=== PATIENT | female | born 1950 | race Caucasian/White ===

== ENCOUNTER 2016-06-05 09:09 | Emergency (ER) | payer MEDICARE, OTHER ==
[~2016-06-05] VITALS: Ht 170.2 cm; Wt 95.3 kg
[~2016-06-05 09:09] MED LIST: AMLO1TAB78 PO; ASPI81TA2 PO; AZIT250T6 PO; GLIP10TA13 PO; LEVO25TA4 PO; MELO-156 PO; METF10002 PO; PARO20TA2 PO; PREG75CA PO; SITA100T PO; SULF1TAB24 PO
[2016-06-05 09:35] VITALS: BP 158/67
[2016-06-05] MEDS ORDERED: FENTANYL PF 100 MCG/2 ML VIAL. IV ONE (10:00)
[2016-06-05] MEDS ORDERED: KETOROLAC TROMETHAMINE 60 MG/2 ML SYRINGE. IM ONE (10:30)
[2016-06-05] MEDS ORDERED: ORPHENADRINE CITRATE 60 MG/2 ML VIAL. IM ONE (10:30)
--- NOTE | 2016-06-05 10:30 | RAD ---
Indication right-sided chest pain. Duration of symptoms 3 days. A single view of the chest was obtained and is compared to an examination 2 weeks earlier. Heart size is at the upper limits of normal but unchanged. The pulmonary vasculature is normal. There is no focal infiltrate in either lung. A significant change when compared to the previous exam is not seen. There is slight deviation of the trachea to the right suggesting enlargement of the left lobe of the thyroid. The appearance is similar to the previous exam. IMPRESSION: No acute or focal process is seen in the chest
[2016-06-05 10:33] LABS: BILIRUBIN,URINE NEGATIVE (NEG); GLUCOSE,URINE >=1000 mg/dL (NEG); NITRITE,URINE NEGATIVE (NEG); PH,URINE 5.5; PROTEIN,URINE NEGATIVE (NEG-TRACE)
[2016-06-05 10:49] LABS: BACTERIA,URINE FEW /HPF (0-FEW); RBC,URINE 0 /HPF (0-2); SQUAMOUS EPITHELIAL CELL,UR MOD /LPF; YEAST,URINE PRESENT /HPF
[2016-06-05] MEDS ORDERED: CYCL10TA2 PO (11:49)
--- NOTE | 2016-06-05 11:49 | PHYS DOC ---
Past Medical History Past Medical History: Anxiety, Bronchitis, CAD, Depression, Diabetes-Type II, Hypertension Past Surgical History: Hysterectomy Additional Past Surgical Histo: THYROID SURG 85 Alcohol Use: None Drug Use: None Adult General Chief Complaint Chief Complaint: BACK PAIN - NO INJURY HPI HPI 65-year-old female presents with mid to low back pain. She states 2 weeks ago she had a bout of bronchitis and cough quite a bit and she thinks the coughing spell injured her back. She states in the last 24 hours she twisted wrong and felt her back locked up on her. She is not any fever chills or sweats. She denies any shortness of breath or dyspnea on exertion. She's had no hemoptysis. She does not complain of abdominal pain. She states the pain currently is 8 out of 10 and much worse if she tries to twist. [] Review of Systems Review of Systems Constitutional: Denies fever or chills [] Eyes: Denies change in visual acuity, redness, or eye pain [] HENT: Denies nasal congestion or sore throat [] Respiratory: Denies cough or shortness of breath [] Cardiovascular: No additional information not addressed in HPI [] GI: Denies abdominal pain, nausea, vomiting, bloody stools or diarrhea [] : Denies dysuria or hematuria [] Musculoskeletal: Per history of present illness] Integument: Denies rash or skin lesions [] Neurologic: Denies headache, focal weakness or sensory changes [] Endocrine: Denies polyuria or polydipsia [] Current Medications Current Medications Current Medications Medications (Trade) Dose Ordered Sig/Sean Start Time Stop Time Status Last Admin Dose Admin Fentanyl Citrate (Fentanyl 2ml Vial) 50 mcg 1X ONCE 06/05/16 10:00 06/05/16 10:01 UNV Ketorolac Tromethamine (Toradol Im) 60 mg 1X ONCE 06/05/16 10:30 06/05/16 10:31 DC 06/05/16 10:38 60 MG Orphenadrine Citrate (Norflex) 60 mg 1X ONCE 06/05/16 10:30 06/05/16 10:31 DC 06/05/16 10:35 60 MG Allergies Allergies Allergies Coded Allergies Type Severity Reaction Last Updated Verified No Known Drug Allergies 08/28/15 No Physical Exam Physical Exam Constitutional: Well developed, well nourished, no acute distress, non-toxic appearance. [] HENT: Normocephalic, atraumatic, bilateral external ears normal, oropharynx moist, no oral exudates, nose normal. [] Eyes: PERRLA, EOMI, conjunctiva normal, no discharge. [] Neck: Normal range of motion, no tenderness, supple, no stridor. [] Cardiovascular:Heart rate regular rhythm, no murmur [] Lungs & Thorax: Bilateral breath sounds clear to auscultation [] Abdomen: Bowel sounds normal, soft, no tenderness, no masses, no pulsatile masses. [] Skin: Warm, dry, no erythema, no rash. [] Back: No tenderness, no CVA tenderness. [] Extremities: No tenderness, no cyanosis, no clubbing, ROM intact, no edema. [] Neurologic: Alert and oriented X 3, normal motor function, normal sensory function, no focal deficits noted. [] Psychologic: Affect normal, judgement normal, mood normal. [] Current Patient Data Vital Signs Vital Signs Date Time Temp Pulse Resp B/P Pulse Ox O2 Delivery O2 Flow Rate FiO2 06/05/16 09:35 97.8 60 20 158/67 96 Room Air 97.8 Lab Values Laboratory Tests Test 06/05/16 10:10 Urine Collection Type Unknown Urine Color Yellow Urine Clarity Clear Urine pH 5.5 Urine Specific [place] >=1.030 Urine Protein Negativemg/dL (NEG-TRACE) Urine Glucose (UA) >=1000mg/dL (NEG) Urine Ketones (Stick) Negativemg/dL (NEG) Urine Blood Negative (NEG) Urine Nitrite Negative (NEG) Urine Bilirubin Negative (NEG) Urine Urobilinogen Dipstick 1.0mg/dL (0.2 mg/dL) Urine Leukocyte Esterase Negative (NEG) Urine RBC 0/HPF (0-2) Urine WBC 1-4/HPF (0-4) Urine Squamous Epithelial Cells Mod/LPF Urine Bacteria Few/HPF (0-FEW) Urine Hyaline Casts Few/HPF Urine Mucus Slight/LPF Urine Yeast Present/HPF EKG EKG [] Radiology/Procedures Radiology/Procedures [] Impressions: PROCEDURE: CHEST PA & LATERAL Indication right-sided chest pain. Duration of symptoms 3 days. A single view of the chest was obtained and is compared to an examination 2 weeks earlier. Heart size is at the upper limits of normal but unchanged. The pulmonary vasculature is normal. There is no focal infiltrate in either lung. A significant change when compared to the previous exam is not seen. There is slight deviation of the trachea to the right suggesting enlargement of the left lobe of the thyroid. The appearance is similar to the previous exam. IMPRESSION: No acute or focal process is seen in the chest Course & Med Decision Making Course & Med Decision Making Pertinent Labs and Imaging studies reviewed. (See chart for details) [ED course: Evaluation reveals 65-year-old female with mid back pain. She was given an IM shot of an anti-inflammatory as well as a muscle relaxer with good relief of her symptoms in the department. I will provide her with some muscle relaxers to take at home. I feel like the patient is stable for discharge.] Dragon Disclaimer Dragon Disclaimer This electronic medical record was generated, in whole or in part, using a voice recognition dictation system. Departure Departure Impression: Primary Impression: Thoracolumbar back pain Disposition: HOME, SELF-CARE Condition: IMPROVED Referrals: ASHLEY GIRON MD (PCP) Patient Instructions: Back Pain, Adult Additional Instructions: Thank you for allowing us to participate in your care today. Followup with your primary care physician in 3 days if your symptoms do not improve. Return to the emergency department you have any new or concerning findings. This should be evaluated by the primary care physician and any necessary consulting services for continued management within a few days after discharge. Return to emergency room if you have any new or concerning symptoms including but not limited to fever, chills, nausea, vomiting, intractable pain, any new rashes, chest pain, shortness of air, uncontrolled bleeding, difficulty breathing, and/or vision loss. You may have been prescribed medication that can change in your level of thinking and ability to operate machinery. These medications include hydrocodone and Ativan. Also, Benadryl has been known to do this as well. Be sure to check with your pharmacist and ask if the medications you've prescribed can affect your level of consciousness. I recommend not operating heavy machinery or driving while on medication such as these. Scripts Cyclobenzaprine Hcl 10 Mg Tablet1 Tab PO TID PRN MUSCLE PAIN #30 TAB Prov:CHRISTINE MATIAS DO 06/05/16 CHRISTINE MATIAS DO Jun 05, 2016 11:49
== END 2016-06-05 12:00 | disposition home or self-care (01) ==
LOC: ER 09:09
DX: M54.5 Low back pain (principal); M54.6 Pain in thoracic spine; R05 Cough; E11.9 Type 2 diabetes mellitus without complications; F32.9 Major depressive disorder, single episode, unspecified; I10 Essential (primary) hypertension; I25.10 Atherosclerotic heart disease of native coronary artery without angina pectoris; F41.9 Anxiety disorder, unspecified; Z90.710 Acquired absence of both cervix and uterus
CPT/HCPCS: 71020; 81001; 96372; 99285; J1885; J2360

== ENCOUNTER 2016-07-01 23:04 | Emergency (ER) | payer MEDICARE, OTHER ==
[~2016-07-01] VITALS: Ht 170.2 cm; Wt 95.3 kg
[~2016-07-01 23:04] MED LIST changes: +CYCL10TA2 PO; -PARO20TA2 PO; +PARO20TA3 PO
[2016-07-01 23:31] VITALS: BP 152/68
[2016-07-02] MEDS ORDERED: ACET1TAB33 PO (01:27)
--- NOTE | 2016-07-02 01:27 | PHYS DOC ---
Past Medical History Past Medical History: Anxiety, Bronchitis, CAD, Depression, Diabetes-Type II, Hypertension Past Surgical History: Hysterectomy Additional Past Surgical Histo: THYROID SURG 85 Alcohol Use: None Drug Use: None Adult General Chief Complaint Chief Complaint: MUSCLE SPASM/[facility] HPI Patient is a 65 year old female presents emergency room with ongoing, atraumatic right sided mid back pain that radiates around to the front when she lifts, twists and moves. Patient has similar episode back in May of this year. She received an injection of Toradol which she said helped greatly with the pain. She was prescribed Flexeril which she took intermittently when she was expressing spasms. She states that this also helps. Patient stated that she will schedule an appointment with her primary care doctor, Dr. Giron, to be seen within the next 1-2 weeks. Patient denies shortness of breath or cough. She denies nausea, vomiting or abdominal pain. Patient denies chest pain, palpitations, exertional dyspnea, orthopnea or PND. Review of Systems Review of Systems Constitutional: Denies fever or chills [] Eyes: Denies change in visual acuity, redness, or eye pain [] HENT: Denies nasal congestion or sore throat [] Respiratory: Denies cough or shortness of breath [] Cardiovascular: No additional information not addressed in HPI [] GI: Denies abdominal pain, nausea, vomiting, bloody stools or diarrhea [] : Denies dysuria or hematuria [] Musculoskeletal: Denies back pain or joint pain [] Integument: Denies rash or skin lesions [] Neurologic: Denies headache, focal weakness or sensory changes [] Endocrine: Denies polyuria or polydipsia [] Current Medications Current Medications Current Medications Medications (Trade) Dose Ordered Sig/[facility] Start Time Stop Time Status Last Admin Dose Admin Ketorolac Tromethamine (Toradol Im) 60 mg 1X ONCE 07/02/16 01:30 07/02/16 01:31 DC 07/02/16 01:25 60 MG Allergies Allergies Allergies Coded Allergies Type Severity Reaction Last Updated Verified No Known Drug Allergies 08/28/15 No Physical Exam Physical Exam Constitutional: Well developed, well nourished, no acute distress, non-toxic appearance. [] HENT: Normocephalic, atraumatic, bilateral external ears normal, oropharynx moist, no oral exudates, nose normal. [] Eyes: PERRLA, EOMI, conjunctiva normal, no discharge. [] Neck: Normal range of motion, no tenderness, supple, no stridor. [] Cardiovascular:Heart rate regular rhythm, no murmur [] Lungs & Thorax: Bilateral breath sounds clear to auscultation. Abdomen: Bowel sounds normal, soft, no tenderness, no masses, no pulsatile masses. Skin: Warm, dry, no erythema, no rash. [] Back: Patient's back is normal in appearance that any overlying skin lesions. There is tenderness to palpation to the right lateral soft tissues along the latissimus dorsi moving around forward. There is no palpable defect, deformity or spasm. There is no CVA tenderness. Extremities: No tenderness, no cyanosis, no clubbing, ROM intact, no edema. [] Neurologic: Alert and oriented X 3, normal motor function, normal sensory function, no focal deficits noted. [] Psychologic: Affect normal, judgement normal, mood normal. [] Current Patient Data Vital Signs Vital Signs Date Time Temp Pulse Resp B/P Pulse Ox O2 Delivery O2 Flow Rate FiO2 07/01/16 23:31 97.7 71 16 152/68 97 Room Air 97.7 EKG EKG [] Radiology/Procedures Radiology/Procedures [] Course & Med Decision Making Course & Med Decision Making Pertinent Labs and Imaging studies reviewed. (See chart for details) [] Dragon Disclaimer Dragon Disclaimer This electronic medical record was generated, in whole or in part, using a voice recognition dictation system. Departure Departure Impression: Primary Impression: Thoracolumbar back pain Disposition: HOME, SELF-CARE Condition: GOOD Referrals: ASHLEY GIRON MD (PCP) Patient Instructions: Back Pain, Adult, [id number] Additional Instructions: 1. Take the medication as prescribed. 2. You can continue to take the cyclobenzaprine (muscle relaxer) that you received in May when you were here. 3. Be sure to follow up with Dr. Giron next 1-2 weeks. Scripts Acetaminophen With Codeine (Acetaminophen-Cod #3 Tablet)1 Each Tablet1 Tab PO PRN Q6HRS PRN PAIN #10 TAB Prov:KONRAD WESTFALL 07/02/16 KONRAD WESTFALL Jul 02, 2016 01:27
[2016-07-02] MEDS ORDERED: KETOROLAC TROMETHAMINE 60 MG/2 ML SYRINGE. IM ONE (01:30)
== END 2016-07-02 01:32 | disposition home or self-care (01) ==
LOC: ER 23:04
DX: M54.6 Pain in thoracic spine (principal); M54.5 Low back pain; F41.9 Anxiety disorder, unspecified; I25.10 Atherosclerotic heart disease of native coronary artery without angina pectoris; F32.9 Major depressive disorder, single episode, unspecified; E11.9 Type 2 diabetes mellitus without complications; I10 Essential (primary) hypertension; Z90.710 Acquired absence of both cervix and uterus
CPT/HCPCS: 96372; 99283; J1885

== ENCOUNTER 2016-12-11 06:34 | Emergency (ER) | payer OTHER ==
[~2016-12-11] VITALS: Ht 170.2 cm; Wt 95.3 kg
[~2016-12-11 06:34] MED LIST changes: +ACET1TAB33 PO; -AMLO1TAB78 PO; +AMLO1TAB97 PO; +ASPI-630 PO; -ASPI81TA2 PO; -MELO-156 PO; +MELO7.5T29 PO; +METF-620 PO; -METF10002 PO
[2016-12-11 07:24] LABS: BASO # 0.2 x10^3/uL (0.0-0.2); BASO % 1 % (0-3); EOS % 0 % (0-3); HEMATOCRIT 37.1 % (36.0-47.0); HEMOGLOBIN 12.2 g/dL (12.0-15.5); LYMPH # 2.9 x10^3/uL (1.0-4.8); LYMPH % 15 % (24-48); MEAN CORPUSCULAR HEMOGLOBIN 30 pg (25-35); MEAN CORPUSCULAR HGB CONC 33 g/dL (31-37); MEAN CORPUSCULAR VOLUME 90 fL (79-100); MONO % 6 % (0-9); NEUT % 77 % (31-73); PLATELET COUNT 279 x10^3/uL (140-400); RED BLOOD COUNT 4.12 x10^6/uL (3.50-5.40); WHITE BLOOD COUNT 19.3 x10^3/uL (4.0-11.0)
[2016-12-11 07:26] LABS: BILIRUBIN,URINE NEGATIVE (NEG); GLUCOSE,URINE >=1000 mg/dL (NEG); NITRITE,URINE NEGATIVE (NEG); PH,URINE 5.5; PROTEIN,URINE NEGATIVE (NEG-TRACE); UROBILINOGEN,URINE 0.2 mg/dL (0.2 mg/dL)
[2016-12-11 07:38] LABS: CREATININE 0.8 mg/dL (0.6-1.0); GFR 71.5
[2016-12-11 07:44] LABS: ALBUMIN 3.1 g/dL (3.4-5.0); ALBUMIN/GLOBULIN RATIO 0.6 (1.0-1.7); POTASSIUM 4.4 mmol/L (3.5-5.1); TOTAL BILIRUBIN 0.5 mg/dL (0.2-1.0)
[2016-12-11 07:45] LABS: BACTERIA,URINE 0 /HPF (0-FEW); RBC,URINE 0 /HPF (0-2); SQUAMOUS EPITHELIAL CELL,UR MOD /LPF; WBC,URINE >40 /HPF (0-4)
--- NOTE | 2016-12-11 07:58 | PHYS DOC ---
Past Medical History Past Medical History: Anxiety, Bronchitis, CAD, Depression, Diabetes-Type II, Hypertension Past Surgical History: Hysterectomy Additional Past Surgical Histo: THYROID SURG 85 Alcohol Use: None Drug Use: None Adult General Chief Complaint Chief Complaint: ABDOMINAL PAIN HPI HPI Patient is a 66 year old female who presents with lower abdominal pain to the right, burning and irritation with urination for one week. She states that she has also had constipation and some clear vaginal discharge.She denies being sexually active. She states that she also intermittently has had chills. She denies cough, chest pain or other illnesses. Review of Systems Review of Systems Constitutional: See history of present illness Eyes: Denies change in visual acuity, redness, or eye pain [] HENT: Denies nasal congestion or sore throat [] Respiratory: Denies cough or shortness of breath [] Cardiovascular: No additional information not addressed in HPI [] GI: See history of present illness : History of present illness Musculoskeletal: The patient has chronic lower back pain Integument: Denies rash or skin lesions [] Neurologic: Denies headache, focal weakness or sensory changes [] Endocrine: Denies polyuria or polydipsia [] Current Medications Current Medications Current Medications Medications (Trade) Dose Ordered Sig/Sean Start Time Stop Time Status Last Admin Dose Admin Azithromycin (Zithromax) 1,000 mg 1X ONCE 12/11/16 12:15 12/11/16 12:16 DC 12/11/16 12:33 1,000 MG Ceftriaxone Sodium (Rocephin Im) 1 gm 1X ONCE 12/11/16 12:15 12/11/16 12:16 DC 12/11/16 12:33 1 GM Iohexol (Omnipaque 300 Mg/ml) 75 ml 1X ONCE 12/11/16 08:15 12/11/16 08:16 DC 12/11/16 08:45 75 ML Allergies Allergies Allergies Coded Allergies Type Severity Reaction Last Updated Verified No Known Drug Allergies 08/28/15 No Physical Exam Physical Exam Constitutional: Well developed, well nourished, no acute distress, non-toxic appearance. [] Cardiovascular:Heart rate regular rhythm, no murmur [] Lungs & Thorax: Bilateral breath sounds clear to auscultation [] Abdomen: Bowel sounds normal, soft, mild tenderness with deep palpation to right lower abdomen, no guarding, no masses, no pulsatile masses. [] Skin: Warm, dry, no erythema, no rash. [] Back: No tenderness, no CVA tenderness. [] Neurologic: Alert and oriented X 3, normal motor function, normal sensory function, no focal deficits noted. [] Psychologic: Affect normal, judgement normal, mood normal. [] Current Patient Data Vital Signs Vital Signs Date Time Temp Pulse Resp B/P (MAP) Pulse Ox O2 Delivery O2 Flow Rate FiO2 12/11/16 09:25 68 16 163/74 (103) 98 Room Air 12/11/16 06:45 98.0 98.0 Lab Values Laboratory Tests Test 12/11/16 06:55 White Blood Count 19.3 x10^3/uL (4.0-11.0) H Red Blood Count 4.12 x10^6/uL (3.50-5.40) Hemoglobin 12.2 g/dL (12.0-15.5) Hematocrit 37.1 % (36.0-47.0) Mean Corpuscular Volume 90 fL (79-100) Mean Corpuscular Hemoglobin 30 pg (25-35) Mean Corpuscular Hemoglobin Concent 33 g/dL (31-37) Red Cell Distribution Width 14.0 % (11.5-14.5) Platelet Count 279 x10^3/uL (140-400) Neutrophils (%) (Auto) 77 % (31-73) H Lymphocytes (%) (Auto) 15 % (24-48) L Monocytes (%) (Auto) 6 % (0-9) Eosinophils (%) (Auto) 0 % (0-3) Basophils (%) (Auto) 1 % (0-3) Neutrophils # (Auto) 14.9 x10^3uL (1.8-7.7) H Lymphocytes # (Auto) 2.9 x10^3/uL (1.0-4.8) Monocytes # (Auto) 1.2 x10^3/uL (0.0-1.1) H Eosinophils # (Auto) 0.0 x10^3/uL (0.0-0.7) Basophils # (Auto) 0.2 x10^3/uL (0.0-0.2) Segmented Neutrophils % 78 % (35-66) H Lymphocytes % 16 % (24-48) L Monocytes % 6 % (0-10) Platelet Estimate Adequate (ADEQUATE) Urine Collection Type Unknown Urine Color Yellow Urine Clarity Clear Urine pH 5.5 Urine Specific [place] >=1.030 Urine Protein Negative mg/dL (NEG-TRACE) Urine Glucose (UA) >=1000 mg/dL (NEG) Urine Ketones (Stick) Negative mg/dL (NEG) Urine Blood Negative (NEG) Urine Nitrite Negative (NEG) Urine Bilirubin Negative (NEG) Urine Urobilinogen Dipstick 0.2 mg/dL (0.2 mg/dL) Urine Leukocyte Esterase Moderate (NEG) Urine RBC 0 /HPF (0-2) Urine WBC >40 /HPF (0-4) Urine Squamous Epithelial Cells Mod /LPF Urine Bacteria 0 /HPF (0-FEW) Sodium Level 136 mmol/L (136-145) Potassium Level 4.4 mmol/L (3.5-5.1) Chloride Level 100 mmol/L (98-107) Carbon Dioxide Level 29 mmol/L (21-32) Anion Gap 7 (6-14) Blood Urea Nitrogen 12 mg/dL (7-20) Creatinine 0.8 mg/dL (0.6-1.0) Estimated GFR (Cockcroft-Gault) 71.5 BUN/Creatinine Ratio 15 (6-20) Glucose Level 314 mg/dL (70-99) H Calcium Level 9.0 mg/dL (8.5-10.1) Total Bilirubin 0.5 mg/dL (0.2-1.0) Aspartate Amino Transferase (AST) 18 U/L (15-37) Alanine Aminotransferase (ALT) 18 U/L (14-59) Alkaline Phosphatase 130 U/L (46-116) H Total Protein 8.0 g/dL (6.4-8.2) Albumin 3.1 g/dL (3.4-5.0) L Albumin/Globulin Ratio 0.6 (1.0-1.7) L Laboratory Tests 12/11/16 06:55 Laboratory Tests 12/11/16 06:55 Microbiology 12/11/16 Wet Prep - Final, Complete EKG EKG [] Radiology/Procedures Radiology/Procedures [] PATIENT: ALICJA العراقي ACCOUNT: [id number] : 1950 LOCATION: ER AGE: 66 SEX: F EXAM STATUS: REG ER ORD. PHYSICIAN: RJ MALDONADO APRN REASON: RLQ abdominal pain x 1 week. PROCEDURE: CT ABD PELV W/ IV CONTRST ONLY CT abdomen and pelvis with contrast 12/11/2016 Clinical indication: Right lower quadrant abdominal pain for one week. Chills. Comparison: None. Technique: Multiple CT images of the abdomen and pelvis were obtained following uneventful intravenous administration of 75 mL Omnipaque 300. Coronal and sagittal reformations were obtained. PQRS Compliance Statement: One or more of the following individualized dose reduction techniques were utilized for this examination: 1. Automated exposure control 2. Adjustment of the mA and/or kV according to patient size 3. Use of iterative reconstruction technique Findings: Abdomen and pelvis: Heart size is normal without significant pericardial effusion. The visualized lung bases are clear. Liver, gallbladder, spleen, adrenal glands, pancreas, and kidneys are within normal limits. No intra or extrahepatic biliary ductal dilatation. Abdominal aorta is normal in caliber with mild aortoiliac calcified atheromatous disease. No retroperitoneal or mesenteric lymphadenopathy. Small and large bowel loops are normal in caliber without obstruction. Appendix is normal in appearance. No abdominal or pelvic lymphadenopathy. No abdominal pelvic free fluid. Mildly distended and unopacified urinary bladder within normal limits. Prior hysterectomy with the vaginal cuff within normal limits. There is a tiny fat-containing umbilical hernia. There is multilevel lumbar disc degeneration there is spondylolysis on the left at L4 with no significant listhesis. There is stable mild anterior-superior compression deformity at T9 with no significant bony retropulsion. Impression: 1. No acute abdominal pelvic inflammatory process, bowel obstruction or ascites. No appendicitis. 2. Old mild T9 superior endplate compression deformity. DICTATED and SIGNED BY: ISAI BLACKWOOD MD DATE: 12/11/16 0919 CC: RJ MALDONADO APRN; ASHLEY GIRON MD; FAY PACHECO DO ~ Impressions: Pelvic examination shows thick green discharge which was sent to the lab for evaluation. No pain was noted on internal exam. No gross deformity or lesions noted. Course & Med Decision Making Course & Med Decision Making Pertinent Labs and Imaging studies reviewed. (See chart for details) []1. Bacterial Vaginosis 2. Trichomoniasis 3 UTI You were given Rocephin and Zithromax in the ED and have a prescription for Flagyl. Please follow up with your PCP in 3 days for a recheck or return to the ED if worsening. Dragon Disclaimer Dragon Disclaimer This electronic medical record was generated, in whole or in part, using a voice recognition dictation system. Departure Departure Referrals: ASHLEY GIRON MD (PCP) Scripts Metronidazole (FLAGYL) 500 Mg Tablet 1 TAB PO BID, #14 TAB Prov: RJ MALDONADO APRN 12/11/16 RJ MALDONADO APRN Dec 11, 2016 07:58
[2016-12-11] MEDS ORDERED: IOHEXOL 300 MG/ML 75 ML VIAL IV ONE (08:15)
[2016-12-11 09:11] LABS: PLT ESTIMATE ADEQUATE (ADEQUATE)
--- NOTE | 2016-12-11 09:29 | RAD ---
CT abdomen and pelvis with contrast 12/11/2016 Clinical indication: Right lower quadrant abdominal pain for one week. Chills. Comparison: None. Technique: Multiple CT images of the abdomen and pelvis were obtained following uneventful intravenous administration of 75 mL Omnipaque 300. Coronal and sagittal reformations were obtained. PQRS Compliance Statement: One or more of the following individualized dose reduction techniques were utilized for this examination: 1. Automated exposure control 2. Adjustment of the mA and/or kV according to patient size 3. Use of iterative reconstruction technique Findings: Abdomen and pelvis: Heart size is normal without significant pericardial effusion. The visualized lung bases are clear. Liver, gallbladder, spleen, adrenal glands, pancreas, and kidneys are within normal limits. No intra or extrahepatic biliary ductal dilatation. Abdominal aorta is normal in caliber with mild aortoiliac calcified atheromatous disease. No retroperitoneal or mesenteric lymphadenopathy. Small and large bowel loops are normal in caliber without obstruction. Appendix is normal in appearance. No abdominal or pelvic lymphadenopathy. No abdominal pelvic free fluid. Mildly distended and unopacified urinary bladder within normal limits. Prior hysterectomy with the vaginal cuff within normal limits. There is a tiny fat-containing umbilical hernia. There is multilevel lumbar disc degeneration there is spondylolysis on the left at L4 with no significant listhesis. There is stable mild anterior-superior compression deformity at T9 with no significant bony retropulsion. Impression: 1. No acute abdominal pelvic inflammatory process, bowel obstruction or ascites. No appendicitis. 2. Old mild T9 superior endplate compression deformity.
[2016-12-11] MEDS ORDERED: AZITHROMYCIN 250 MG TABLET. PO ONE (12:15)
[2016-12-11] MEDS ORDERED: cefTRIAXone IM 1 GM VIAL IM ONE (12:15)
[2016-12-11] MEDS ORDERED: METR500T PO (12:16)
[2016-12-11 12:37] VITALS: BP 163/73
== END 2016-12-11 12:48 | disposition home or self-care (01) ==
LOC: ER 06:34
DX: N76.0 Acute vaginitis (principal); B96.89 Other specified bacterial agents as the cause of diseases classified elsewhere; A59.9 Trichomoniasis, unspecified; N39.0 Urinary tract infection, site not specified; K59.00 Constipation, unspecified; F41.9 Anxiety disorder, unspecified; I25.10 Atherosclerotic heart disease of native coronary artery without angina pectoris; F32.9 Major depressive disorder, single episode, unspecified; E11.9 Type 2 diabetes mellitus without complications; I10 Essential (primary) hypertension; Z90.710 Acquired absence of both cervix and uterus
CPT/HCPCS: 36415; 74177; 80053; 81001; 85007; 85025; 87086; 87491; 87591; 96372; 99285; J0696; Q0111; Q0144; Q9967

== ENCOUNTER 2017-01-29 08:31 | Emergency (ER) | payer OTHER ==
[~2017-01-29] VITALS: Ht 170.2 cm; Wt 95.3 kg
[~2017-01-29 08:31] MED LIST changes: +METR500T PO
[2017-01-29 08:40] VITALS: BP 199/86
--- NOTE | 2017-01-29 08:54 | PHYS DOC ---
Past Medical History Past Medical History: Anxiety, Bronchitis, CAD, Depression, Diabetes-Type II, Hypertension Past Surgical History: Hysterectomy Additional Past Surgical Histo: THYROID SURG 85 Alcohol Use: None Drug Use: None Adult General Chief Complaint Chief Complaint: KNEE INJURY HPI HPI Patient is a 66 year old female presents to the emergency department with a history of left knee pain for 2 months and within the last week developed right knee pain. Patient states she is here for her right knee pain. Patient states she has taken Ibuprofen with some relief 2 days ago. She denies injury or trauma to the right knee. Patient with slight swelling noted. No redness noted. Patient was able to ambulate to room slowly. Review of Systems Review of Systems Constitutional: Denies fever or chills [] Eyes: Denies change in visual acuity, redness, or eye pain [] HENT: Denies nasal congestion or sore throat [] Respiratory: Denies cough or shortness of breath [] Cardiovascular: No additional information not addressed in HPI [] GI: Denies abdominal pain, nausea, vomiting, bloody stools or diarrhea [] : Denies dysuria or hematuria [] Musculoskeletal: Denies back pain. Right knee pain Integument: Denies rash or skin lesions [] Neurologic: Denies headache, focal weakness or sensory changes [] Endocrine: Denies polyuria or polydipsia [] Allergies Allergies Allergies Coded Allergies Type Severity Reaction Last Updated Verified No Known Drug Allergies 08/28/15 No Physical Exam Physical Exam Constitutional: Well developed, well nourished, no acute distress, non-toxic appearance. [] HENT: Normocephalic, atraumatic, bilateral external ears normal, oropharynx moist, no oral exudates, nose normal. [] Eyes: PERRLA, EOMI, conjunctiva normal, no discharge. [] Neck: Normal range of motion, no tenderness, supple, no stridor. [] Cardiovascular:Heart rate regular rhythm Lungs & Thorax: no respiratory distress noted Skin: Warm, dry, no erythema, no rash. [] Extremities: Right patella tenderness, no cyanosis, no clubbing, ROM intact, no edema. Slight swelling no redness. Negative Kasie, negative vargus, negative valgus. Peripheral pulses 2+ cap refill brisk < 2 seconds. Neurologic: Alert and oriented X 3, normal motor function, normal sensory function, no focal deficits noted. [] Psychologic: Affect normal, judgement normal, mood normal. [] Current Patient Data Vital Signs Vital Signs Date Time Temp Pulse Resp B/P (MAP) Pulse Ox O2 Delivery O2 Flow Rate FiO2 01/29/17 08:40 97.8 62 20 99 Room Air 97.8 EKG EKG [] Radiology/Procedures Radiology/Procedures [][facility] [address] [place] [address] IMAGING REPORT Signed PATIENT: ALICJA العراقي ACCOUNT: [id number] : 1950 LOCATION: ER AGE: 66 SEX: F EXAM STATUS: PRE ER ORD. PHYSICIAN: ISHA MORTON APRN REASON: right knee pain PROCEDURE: KNEE RIGHT 4V 4 view right knee study History: Right knee pain. No known injury. Findings: No acute fracture or dislocation or osteolytic process is evident. There is moderate joint space narrowing and spurring of the medial and lateral tibiofemoral joint compartments. There is moderate spurring with mild joint space narrowing of the patellofemoral joint compartment. No significant swelling of the suprapatellar bursa is evident. IMPRESSION: Tricompartmental primary degenerative osteoarthritis of the right knee. DICTATED and SIGNED BY: CR AL MD DATE: 01/29/17 0856 CC: ISHA MORTON APRN; ASHLEY GIRON MD ~ Course & Med Decision Making Course & Med Decision Making Pertinent Labs and Imaging studies reviewed. (See chart for details) Patients x-ray identified arthritis. She will be discharged home in stable condition. Recommended Ibuprofen 400 mg every 8 hours with food. Also recommended that she followup with primary care provider in 1 weeks. Signs and symptoms to return to the emergency department has been provided. All questions and concerns have been answered at the bedside. Recommended ice packs on 20 minutes and off 20 minutes . Maurice wrap for the right knee until followup. Patient agrees with discharge instructions, treatment regimen and followup recommendations. [] Dragon Disclaimer Dragon Disclaimer This electronic medical record was generated, in whole or in part, using a voice recognition dictation system. Departure Departure Impression: Primary Impression: Right knee pain Disposition: 01 HOME, SELF-CARE Condition: STABLE Referrals: ASHLEY GIRON MD (PCP) Patient Instructions: Elastic Bandage and RICE, Patellar Tendinitis, Jumper's Knee with [facility] Additional Instructions: Activity as tolerated Ibuprofen 400 mg every 8 hours with food stop taking if you develop upset stomach Ice packs on 20 minutes and off 20 minutes several times a day Wear the maurice wrap until you followup with primary care provided Followup with primary care provider in 1 week Return to emergency department as needed for signs and symptoms that become worse. Problem Qualifiers Primary Impression: Right knee pain Chronicity: unspecified Qualified Codes: M25.561 - Pain in right knee ISHA MORTON APRN Jan 29, 2017 08:54
--- NOTE | 2017-01-29 08:59 | RAD ---
4 view right knee study History: Right knee pain. No known injury. Findings: No acute fracture or dislocation or osteolytic process is evident. There is moderate joint space narrowing and spurring of the medial and lateral tibiofemoral joint compartments. There is moderate spurring with mild joint space narrowing of the patellofemoral joint compartment. No significant swelling of the suprapatellar bursa is evident. IMPRESSION: Tricompartmental primary degenerative osteoarthritis of the right knee.
[2017-01-29] MEDS ORDERED: IBUPROFEN 400 MG TABLET. PO ONE (09:30)
== END 2017-01-29 09:33 | disposition home or self-care (01) ==
LOC: ER 08:31
DX: M25.561 Pain in right knee (principal); M25.562 Pain in left knee; E11.9 Type 2 diabetes mellitus without complications; I10 Essential (primary) hypertension; I25.10 Atherosclerotic heart disease of native coronary artery without angina pectoris; Z90.710 Acquired absence of both cervix and uterus
CPT/HCPCS: 73564; 99284

== ENCOUNTER 2017-10-29 16:39 | Emergency (ER) | payer MEDICARE, OTHER ==
[2017-10-29 17:20] LABS: ADD MAN DIFF? NO
[2017-10-29 17:24] LABS: BASO # 0.1 x10^3/uL (0.0-0.2); BASO % 1 % (0-3); EOS # 0.1 x10^3/uL (0.0-0.7); EOS % 1 % (0-3); HEMATOCRIT 36.8 % (36.0-47.0); HEMOGLOBIN 12.3 g/dL (12.0-15.5); LYMPH # 3.5 x10^3/uL (1.0-4.8); LYMPH % 40 % (24-48); MEAN CORPUSCULAR HEMOGLOBIN 30 pg (25-35); MEAN CORPUSCULAR HGB CONC 34 g/dL (31-37); MEAN CORPUSCULAR VOLUME 90 fL (79-100); MONO # 0.6 x10^3/uL (0.0-1.1); MONO % 7 % (0-9); NEUT # 4.7 x10^3uL (1.8-7.7); NEUT % 52 % (31-73); PLATELET COUNT 273 x10^3/uL (140-400); RED BLOOD COUNT 4.08 x10^6/uL (3.50-5.40); RED CELL DISTRIBUTION WIDTH 14.5 % (11.5-14.5); WHITE BLOOD COUNT 8.9 x10^3/uL (4.0-11.0)
[2017-10-29 17:39] LABS: ANION GAP 11 (6-14); BLOOD UREA NITROGEN 14 mg/dL (7-20); BUN/CREATININE RATIO 14 (6-20); CALCIUM 8.5 mg/dL (8.5-10.1); CARBON DIOXIDE 27 mmol/L (21-32); CHLORIDE 103 mmol/L (98-107); GFR 55.1; GLUCOSE 117 mg/dL (70-99); POTASSIUM 3.6 mmol/L (3.5-5.1); SODIUM 141 mmol/L (136-145)
[2017-10-29 17:45] LABS: ALBUMIN 3.4 g/dL (3.4-5.0); ALBUMIN/GLOBULIN RATIO 0.8 (1.0-1.7); ALK PHOS 107 U/L (46-116); ALT (SGPT) 20 U/L (14-59); AST (SGOT) 14 U/L (15-37); TOTAL BILIRUBIN 0.3 mg/dL (0.2-1.0); TOTAL PROTEIN 7.7 g/dL (6.4-8.2)
[2017-10-29 17:50] LABS: TROPONINI < 0.017 ng/mL (0.000-0.055)
[2017-10-29 17:52] LABS: CKMB INDEX 0.7 % (0-4); CKMB MASS 1.3 ng/mL (0.0-3.6); CREATINE KINASE 179 U/L (26-192)
[2017-10-29 19:26] LABS: BILIRUBIN,URINE NEGATIVE (NEG); COLOR,URINE YELLOW; GLUCOSE,URINE NEGATIVE (NEG); NITRITE,URINE NEGATIVE (NEG); PH,URINE 6.5; PROTEIN,URINE NEGATIVE (NEG-TRACE); UROBILINOGEN,URINE 0.2 mg/dL (0.2 mg/dL)
[2017-10-29 19:35] LABS: CLARITY,URINE HAZY
[2017-10-29 19:37] LABS: BACTERIA,URINE MANY /HPF (0-FEW); SQUAMOUS EPITHELIAL CELL,UR MANY /LPF; WBC,URINE >40 /HPF (0-4)
== END 2017-10-29 20:32 | disposition home or self-care (01) ==
LOC: ER 16:39
DX: J98.8 Other specified respiratory disorders (principal); N39.0 Urinary tract infection, site not specified; E11.9 Type 2 diabetes mellitus without complications; I10 Essential (primary) hypertension; E03.9 Hypothyroidism, unspecified; F41.9 Anxiety disorder, unspecified; I25.10 Atherosclerotic heart disease of native coronary artery without angina pectoris
CPT/HCPCS: 36415; 71046; 80053; 81001; 82553; 84484; 85025; 87086; 93005; 99285-25

== ENCOUNTER 2018-01-12 09:45 | Emergency (ER) | payer MEDICARE, OTHER ==
[~2018-01-12] VITALS: Ht 170.2 cm; Wt 99.5 kg
[~2018-01-12 09:45] MED LIST changes: +LEVO500T59 PO; -METF-620 PO; +METF10007 PO
--- NOTE | 2018-01-12 11:40 | PHYS DOC ---
Past Medical History Past Medical History: Anxiety, Arthritis, Bronchitis, CAD, Depression, Diabetes -Type II, Hypertension, Hypothyroid Past Surgical History: Hysterectomy, Tubal ligation Additional Past Surgical Histo: THYROID SURG 85 Alcohol Use: None Drug Use: None Adult General Chief Complaint Chief Complaint: HEADACHE HPI HPI Patient is a 67 year old [place] female with history of depression, arthritis , hypertension who presents with intermittent headache for the past 2 weeks. Headache is described as light, dull and throbbing. It is located in the left temporal and parietal region. There is no tenderness to palpation, change in vision, jaw claudication, nausea or vomiting. Headache is reported be positional. It is improved with rest. Denies neck pain, stiffness, no extremity weakness or loss of sensation. This is not the worst headache of the patient's life. No history of subarachnoid hemorrhage. Patient has not been evaluated for this complaint prior to today's ED visit. Patient does have routine ophthalmology care for treatment of cataract most recent eye exam for months ago. Denies history of glaucoma. [] Review of Systems Review of Systems ROS as per HPIo be within normal limits,. Allergies Allergies Allergies Coded Allergies Type Severity Reaction Last Updated Verified No Known Drug Allergies 08/28/15 No Physical Exam Physical Exam Constitutional: Well developed, well nourished, no acute distress, non-toxic appearance. [] HENT: Normocephalic, no temporal scalp tenderness, atraumatic, bilateral external ears normal, oropharynx moist, no oral exudates, nose normal. [] Eyes: PERRLA, EOMI. her pressures, OS: 17, 19, 20, OS: 18, 20, 20[] Neck: Normal range of motion, no tenderness. [] Cardiovascular:Heart rate regular rhythm, no murmur. [] Lungs & Thorax: Bilateral breath sounds clear to auscultation. [] Abdomen: Bowel sounds normal, soft, no tenderness. [] Skin: Warm, dry. [] Back: No tenderness. [] Extremities: No tenderness. [] Neurologic: Alert and oriented X 3, cranial nerves II through XII grossly intact , normal motor function, normal sensory function, no focal deficits noted. [] Psychologic: Affect normal, judgement normal, mood normal. [] Current Patient Data Vital Signs Vital Signs Date Time Temp Pulse Resp B/P (MAP) Pulse Ox O2 Delivery O2 Flow Rate FiO2 01/12/18 12:28 68 26 98 01/12/18 10:09 98.1 193/79 (117) Room Air 98.1 EKG EKG [] Radiology/Procedures Radiology/Procedures [CT head: No acute findings per radiology report] Course & Med Decision Making Course & Med Decision Making Pertinent Labs and Imaging studies reviewed. (See chart for details) [Intermittent daily headaches for the past 2 weeks. No focal neurologic deficits. CT head negative. No scalp tenderness or findings of acute glaucoma, Patient's symptoms mild declines pain medication the ED.] Dragon Disclaimer Dragon Disclaimer This electronic medical record was generated, in whole or in part, using a voice recognition dictation system. Departure Departure Impression: Primary Impression: Headache Disposition: HOME, SELF-CARE Condition: Referrals: ASHLEY GIRON MD (PCP) REID RONQUILLO DO Jan 12, 2018 11:39
--- NOTE | 2018-01-12 11:44 | RAD ---
CT HEAD INDICATION: FREQUENT HEADACHES, LEFT SIDE, NO PRIORS COMPARISON: None Available. TECHNIQUE: 5 mm contiguous axial images were obtained from the skull base to the vertex in both bone and soft tissue algorithm. Exposure: One or more of the following individualized dose reduction techniques were utilized for this examination: 1. Automated exposure control 2. Adjustment of the mA and/or kV according to patient size 3. Use of iterative reconstruction technique FINDINGS: Mild bilateral periventricular white matter hypodensities likely chronic small vessel ischemic disease. No evidence of acute intracranial hemorrhage. No extra-axial fluid collections. No mass effect or midline shift. Ventricular size is appropriate. Basal cisterns are patent. No fractures identified.Thompson-white differentiation is preserved.Globes and orbits are within normal limits. Paranasal sinuses and mastoid air cells are clear. IMPRESSION: No acute intracranial findings. Electronically signed by: Rojelio Prescott MD (01/12/2018 11:41 AM) [id number]
[2018-01-12 13:13] VITALS: BP 203/84
== END 2018-01-12 13:24 | disposition home or self-care (01) ==
LOC: ER 09:45
DX: R51 Headache (principal); E03.9 Hypothyroidism, unspecified; I10 Essential (primary) hypertension; E11.9 Type 2 diabetes mellitus without complications; I25.10 Atherosclerotic heart disease of native coronary artery without angina pectoris; F41.9 Anxiety disorder, unspecified
CPT/HCPCS: 70450; 99284-25

== ENCOUNTER 2018-06-18 02:49 | Emergency (ER) | payer MEDICARE, OTHER ==
[~2018-06-18] VITALS: Ht 170.2 cm; Wt 95.3 kg
--- NOTE | 2018-06-18 03:10 | PHYS DOC ---
Past Medical History Past Medical History: Anxiety, Arthritis, Bronchitis, CAD, Depression, Diabetes -Type II, Hypertension, Hypothyroid Past Surgical History: Hysterectomy, Tubal ligation Additional Past Surgical Histo: THYROID SURG 85 Alcohol Use: None Drug Use: None Adult General Chief Complaint Chief Complaint: DIZZY/LIGHT HEADED HPI HPI Patient is a 67-year-old female presents to the emergency department via EMS. She states she awakened just prior to arrival, and felt very dizzy. She describes her dizziness as a sense of faintness and lightheadedness, not a sense of rotation. However, she does admit to some tinnitus bilaterally. She has not had any numbness, weakness, vision changes, and denies any pain, including a headache, chest pain, shortness of breath, neck pain, and she has not had any abdominal pain. She has had nauseousness, but no vomiting. She also reports 1 episode of diarrhea just prior to arrival around the time the dizziness started. Sitting upright seems to worsen her symptoms. There are no alleviating factors to her symptoms otherwise. Review of Systems Review of Systems Constitutional: Denies fever or chills [] Eyes: Denies change in visual acuity, redness, or eye pain [] HENT: Denies nasal congestion or sore throat [] Respiratory: Denies cough or shortness of breath [] Cardiovascular: The patient denies any shortness of breath, chest pain, palpitations, or orthopnea [] GI: Denies abdominal pain, vomiting, bloody stools, and denies any recent travel, or antibiotic use.[] : Denies dysuria or hematuria [] Musculoskeletal: Denies back pain or joint pain [] Integument: Denies rash or skin lesions [] Neurologic: Denies headache, focal weakness or sensory changes [] Endocrine: Denies polyuria or polydipsia [] All other systems were reviewed and found to be within normal limits, except as documented in this note. Current Medications Current Medications Current Medications Medications (Trade) Dose Ordered Sig/Sean Start Time Stop Time Status Last Admin Dose Admin Acetaminophen (Tylenol) 650 mg 1X ONCE 06/18/18 05:00 06/18/18 05:00 DC Lorazepam (Ativan) 0.5 mg 1X ONCE 06/18/18 05:30 06/18/18 05:31 DC 06/18/18 05:13 0.5 MG Meclizine HCl (Antivert) 25 mg 1X ONCE 06/18/18 05:30 06/18/18 05:31 DC 06/18/18 05:13 25 MG Ondansetron HCl (Zofran) 4 mg 1X ONCE 06/18/18 03:30 06/18/18 03:31 DC 06/18/18 03:38 4 MG Sodium Chloride 500 ml @ 500 mls/hr 1X ONCE 06/18/18 03:30 06/18/18 04:29 DC 06/18/18 03:38 500 MLS/HR Allergies Allergies Allergies Coded Allergies Type Severity Reaction Last Updated Verified No Known Drug Allergies 08/28/15 No Physical Exam Physical Exam PHYSICAL EXAM: CONSTITUTIONAL: Well developed, well nourished HEAD: normocephalic, atraumatic EENT: PERRL, EOMI. is mild nystagmus bilaterally on lateral gaze. Conjunctivae normal color, sclerae non-icteric; moist mucous membranes. Tympanic membranes are normal bilaterally. NECK: Supple, non-tender; no meningismus. LUNGS: Lungs CTA, breathing even and unlabored. Normal air movement. HEART: Regular rate and rhythm, no murmur CHEST: No deformity; non-tender ABDOMEN: The abdomen is soft, and non-tender, no masses or bruits. EXTREM: Normal ROM; no deformity, no calf tenderness. Normal pulses palpable in all extremities. There is no pedal edema. SKIN: No rash; no diaphoresis NEURO: Alert; normal speech and cognition; CN's grossly intact; strength grossly intact without focal deficit.Jtydbe-[id number]-eywutv and heel serrato testing is normal. Visual cali are intact by confrontation. BACK: No CVA TTP. Current Patient Data Vital Signs Vital Signs Date Time Temp Pulse Resp B/P (MAP) Pulse Ox O2 Delivery O2 Flow Rate FiO2 06/18/18 05:13 63 21 99 06/18/18 02:49 98.2 205/99 (134) Room Air 98.2 Lab Values Laboratory Tests Test 06/18/18 03:12 White Blood Count 8.8 x10^3/uL (4.0-11.0) Red Blood Count 4.09 x10^6/uL (3.50-5.40) Hemoglobin 12.3 g/dL (12.0-15.5) Hematocrit 37.2 % (36.0-47.0) Mean Corpuscular Volume 91 fL (79-100) Mean Corpuscular Hemoglobin 30 pg (25-35) Mean Corpuscular Hemoglobin Concent 33 g/dL (31-37) Red Cell Distribution Width 14.4 % (11.5-14.5) Platelet Count 257 x10^3/uL (140-400) Neutrophils (%) (Auto) 56 % (31-73) Lymphocytes (%) (Auto) 36 % (24-48) Monocytes (%) (Auto) 6 % (0-9) Eosinophils (%) (Auto) 2 % (0-3) Basophils (%) (Auto) 1 % (0-3) Neutrophils # (Auto) 5.0 x10^3uL (1.8-7.7) Lymphocytes # (Auto) 3.1 x10^3/uL (1.0-4.8) Monocytes # (Auto) 0.5 x10^3/uL (0.0-1.1) Eosinophils # (Auto) 0.2 x10^3/uL (0.0-0.7) Basophils # (Auto) 0.0 x10^3/uL (0.0-0.2) Sodium Level 140 mmol/L (136-145) Potassium Level 3.4 mmol/L (3.5-5.1) L Chloride Level 104 mmol/L (98-107) Carbon Dioxide Level 30 mmol/L (21-32) Anion Gap 6 (6-14) Blood Urea Nitrogen 14 mg/dL (7-20) Creatinine 0.7 mg/dL (0.6-1.0) Estimated GFR (Cockcroft-Gault) 83.2 BUN/Creatinine Ratio 20 (6-20) Glucose Level 133 mg/dL (70-99) H Calcium Level 8.9 mg/dL (8.5-10.1) Total Bilirubin 0.2 mg/dL (0.2-1.0) Aspartate Amino Transferase (AST) 15 U/L (15-37) Alanine Aminotransferase (ALT) 16 U/L (14-59) Alkaline Phosphatase 113 U/L (46-116) Creatine Kinase 98 U/L (26-192) Creatine Kinase MB (Mass) 0.7 ng/mL (0.0-3.6) Creatine Kinase MB Relative Index 0.7 % (0-4) Troponin I Quantitative < 0.017 ng/mL (0.000-0.055) OK-Jli-D-Type Natriuretic Peptide 158 pg/mL (0-124) H Total Protein 7.8 g/dL (6.4-8.2) Albumin 3.2 g/dL (3.4-5.0) L Albumin/Globulin Ratio 0.7 (1.0-1.7) L Laboratory Tests 06/18/18 03:12 Laboratory Tests 06/18/18 03:12 EKG EKG [Normal sinus rhythm with a normal rate, normal axis, normal intervals, there are no acute ischemic ST/T changes.] Radiology/Procedures Radiology/Procedures [PROCEDURE: CT HEAD WO CONTRAST CT head without contrast dated 06/18/2018. Comparison made to 01/13/2016. CLINICAL INDICATION: Dizziness. TECHNIQUE: Contiguous axial imaging the head was performed from skull base to vertex. No contrast administered. Finds: Ventricles and sulci are within normal limits for age. No midline shift or mass effect. Brain parenchyma is of normal attenuation. No hemorrhage or extra-axial collection. Posterior fossa and brainstem unremarkable. Visualized paranasal sinuses and mastoid air cells are clear. No apparent calvarial abnormality. Impression no evidence of acute intracranial abnormality.] ER physician preliminary chest x-ray interpretation: No acute disease. Course & Med Decision Making Course & Med Decision Making Pertinent Labs and Imaging studies reviewed. (See chart for details) [5:30 AM: Patient's condition remained stable at this time, her blood pressure has improved to 152/65, or dizziness has significantly improved. I discussed test results with the patient, the need for close follow-up with her PCP and ENT , and return precautions.] Dragon Disclaimer Dragon Disclaimer This electronic medical record was generated, in whole or in part, using a voice recognition dictation system. Departure Departure Impression: Primary Impression: Dizziness Disposition: 01 HOME, SELF-CARE Condition: STABLE Referrals: ASHLEY GIRON MD (PCP) RAJEEV LYONS MD Patient Instructions: Dizziness, Vertigo Scripts Meclizine Hcl (MECLIZINE HCL) 25 Mg Tablet 1 TAB PO Q6H PRN for dizziness, #30 TAB Prov: DEVIKA PRADHAN MD 06/18/18 DEVIKA PRADHAN MD Jun 18, 2018 03:10
[2018-06-18 03:19] LABS: BASO % 1 % (0-3); EOS # 0.2 x10^3/uL (0.0-0.7); EOS % 2 % (0-3); HEMATOCRIT 37.2 % (36.0-47.0); HEMOGLOBIN 12.3 g/dL (12.0-15.5); LYMPH # 3.1 x10^3/uL (1.0-4.8); LYMPH % 36 % (24-48); MEAN CORPUSCULAR HEMOGLOBIN 30 pg (25-35); MEAN CORPUSCULAR HGB CONC 33 g/dL (31-37); MEAN CORPUSCULAR VOLUME 91 fL (79-100); MONO # 0.5 x10^3/uL (0.0-1.1); MONO % 6 % (0-9); NEUT % 56 % (31-73); PLATELET COUNT 257 x10^3/uL (140-400); RED BLOOD COUNT 4.09 x10^6/uL (3.50-5.40); RED CELL DISTRIBUTION WIDTH 14.4 % (11.5-14.5); WHITE BLOOD COUNT 8.8 x10^3/uL (4.0-11.0)
[2018-06-18 03:29] LABS: CALCIUM 8.9 mg/dL (8.5-10.1); CREATININE 0.7 mg/dL (0.6-1.0); GFR 83.2; POTASSIUM 3.4 mmol/L (3.5-5.1)
[2018-06-18] MEDS ORDERED: IV NORMAL SALINE 500ML BAG 500 ML IV ONE (03:30)
[2018-06-18] MEDS ORDERED: ONDANSETRON PF 4 MG/2 ML VIAL. IV ONE (03:30)
[2018-06-18] MEDS ORDERED: MECLIZINE HCL 12.5 MG TABLET. PO ONE ×2 (03:30→05:30)
[2018-06-18 03:35] LABS: ALBUMIN 3.2 g/dL (3.4-5.0); ALBUMIN/GLOBULIN RATIO 0.7 (1.0-1.7); TOTAL BILIRUBIN 0.2 mg/dL (0.2-1.0); TOTAL PROTEIN 7.8 g/dL (6.4-8.2)
--- NOTE | 2018-06-18 04:57 | RAD ---
Single view chest dated 06/18/2018. Comparison made to 10/29/2017. CLINICAL INDICATION: Dizziness and weakness. FINDINGS: Single upright portal exam performed. Heart and mediastinal contours are stable. Lung volumes are low, limiting evaluation. No consolidation or pleural effusion. No pneumothorax. IMPRESSION: No acute radiographic abnormality. Stable findings compared to 10/29/2017. Electronically signed by: Ant Crowder MD (06/18/2018 4:53 AM) [facility]
[2018-06-18] MEDS ORDERED: ACETAMINOPHEN 325 MG TABLET. PO ONE (05:00)
[2018-06-18 05:13] VITALS: BP 152/65
--- NOTE | 2018-06-18 05:18 | RAD ---
CT head without contrast dated 06/18/2018. Comparison made to 01/13/2016. CLINICAL INDICATION: Dizziness. TECHNIQUE: Contiguous axial imaging the head was performed from skull base to vertex. No contrast administered. Finds: Ventricles and sulci are within normal limits for age. No midline shift or mass effect. Brain parenchyma is of normal attenuation. No hemorrhage or extra-axial collection. Posterior fossa and brainstem unremarkable. Visualized paranasal sinuses and mastoid air cells are clear. No apparent calvarial abnormality. Impression no evidence of acute intracranial abnormality. Electronically signed by: Ant Crowder MD (06/18/2018 5:14 AM) [facility]
[2018-06-18] MEDS ORDERED: MECL25TA3 PO (05:34)
--- NOTE | 2018-06-18 07:19 | EKG ---
[facility] [address] [place] [address] Test Date: 2018-06-18 Test Time: 02:49:54 Pat Name: ALICJA العراقي Department: Room: Gender: F Nurses Educator: : 1950 Requested By: DEVIKA PRADHAN Order Number: [id number] Reading MD: Michael Lassiter MD Measurements Intervals [place] Rate: 62 P: 54 GA: 164 QRS: 37 QRSD: 80 T: 57 QT: 416 QTc: 424 Interpretive Statements SINUS RHYTHM Electronically Signed On 06-18-2018 11:10:14 PRESETTER OPERATOR by Michael Lassiter MD
== END 2018-06-18 06:03 | disposition home or self-care (01) ==
LOC: ER 02:49
DX: R42 Dizziness and giddiness (principal); R11.0 Nausea; R19.7 Diarrhea, unspecified; I25.10 Atherosclerotic heart disease of native coronary artery without angina pectoris; I10 Essential (primary) hypertension; E11.9 Type 2 diabetes mellitus without complications; E03.9 Hypothyroidism, unspecified; Z90.710 Acquired absence of both cervix and uterus; Z98.51 Tubal ligation status
CPT/HCPCS: 36415; 70450; 71045; 80053; 82553; 83880; 84484; 85025; 93005; 96361; 96374; 96375; 99284; J2060; J2405; J7040; J8597

== ENCOUNTER 2018-08-14 04:19 | Emergency (ER) | payer OTHER ==
[~2018-08-14] VITALS: Ht 170.2 cm; Wt 95.3 kg
[~2018-08-14 04:19] MED LIST changes: +MECL25TA3 PO
[2018-08-14 04:45] VITALS: BP 160/73
--- NOTE | 2018-08-14 04:45 | PHYS DOC ---
Past Medical History Past Medical History: Anxiety, Arthritis, Bronchitis, CAD, Depression, Di abetes-Type II, Hypertension, Hypothyroid Past Surgical History: Hysterectomy, Tubal ligation Additional Past Surgical Histo: THYROID SURG 85 Alcohol Use: None Drug Use: None Adult General Chief Complaint Chief Complaint: HYPERGLYCEMIA HPI HPI Patient is a 67 year old female who presents with concerns for hypoglycemia. Patient states that she woke up this morning and checked her sugar and it was 55. Patient drank some juice and rechecked her sugar and it was 54. Patient then decided to eat more food and head to the emergency department to get evaluated. Upon arrival at ED patients sugar was 296. Patient denied any feelings of lightheadedness, dizziness, or diaphoresis. Review of Systems Review of Systems Constitutional: Denies fever or chills [] Eyes: Denies redness or eye pain [] HENT: Denies nasal congestion or sore throat [] Respiratory: Denies cough or shortness of breath [] Cardiovascular: Denies chest pain or palpitations GI: Denies abdominal pain, nausea, vomiting : Denies dysuria or hematuria [] Musculoskeletal: Denies back pain or joint pain [] Integument: Denies rash or skin lesions [] Neurologic: Denies headache or focal weakness Endocrine: Denies polyuria or polydipsia [] Complete systems were reviewed and found to be within normal limits, except as documented in this note. Allergies Allergies Allergies Coded Allergies Type Severity Reaction Last Updated Verified No Known Drug Allergies 08/28/15 No Physical Exam Physical Exam Constitutional: Well developed, well nourished, no acute distress HENT: Normocephalic, atraumatic Eyes: EOMI, no discharge. [] Neck: Normal range of motion, supple. [] Cardiovascular:Heart rate regular rhythm, no murmur [] Lungs & Thorax: Bilateral breath sounds clear to auscultation [] Abdomen: Bowel sounds normal, soft, no tenderness [] Skin: Warm, dry [] Back: No tenderness, no CVA tenderness. [] Extremities: No clubbing, ROM intact, no edema. [] Neurologic: Alert and oriented X 3, no focal deficits noted. [] Psychologic: Affect normal, mood normal. [] Current Patient Data Lab Values Laboratory Tests Test 08/14/18 04:29 Glucose (Fingerstick) 296 mg/dL (70-99) H EKG EKG [] Radiology/Procedures Radiology/Procedures [] Course & Med Decision Making Course & Med Decision Making 67 year old female presents to the ED for concerns for hypoglycemia. Patient states her sugar at home went down as low as 54. She attempted to eat some food, but her sugar never went up. She denied having any symptoms at home. Upon arrival to ER patients sugar was 296. Patient did bring her own glucometer and we tested her glucometer against ours. During this test her glucometer r ead 90 and the hospital glucometer was 316. Instructed patient to continue to take her diabetic medication as prescribed. Encouraged patient to get her glucometer recalibrated. Patient stable for discharge with outpatient follow-up with PCP. Discussed findings and plan with patient and family, who acknowledge understanding and agreement. Dragon Disclaimer Dragon Disclaimer This electronic medical record was generated, in whole or in part, using a voice recognition dictation system. Departure Departure Impression: Primary Impression: Feared condition not demonstrated Additional Impression: Hypoglycemia Disposition: 01 HOME, SELF-CARE Condition: STABLE Referrals: ASHLEY GIRON MD (PCP) Patient Instructions: Hypoglycemia, [id number] Additional Instructions: Hold newly prescribed diabetes medication and follow with your doctor for further evaluation and adjustment of your medications. Problem Qualifiers CALIN GAXIOLA DO Aug 14, 2018 04:45
== END 2018-08-14 05:15 | disposition home or self-care (01) ==
LOC: ER 04:19
DX: E16.2 Hypoglycemia, unspecified (principal); F41.9 Anxiety disorder, unspecified; M19.90 Unspecified osteoarthritis, unspecified site; I25.10 Atherosclerotic heart disease of native coronary artery without angina pectoris; F32.9 Major depressive disorder, single episode, unspecified; E11.9 Type 2 diabetes mellitus without complications; I10 Essential (primary) hypertension; Z90.710 Acquired absence of both cervix and uterus; Z98.51 Tubal ligation status
CPT/HCPCS: 82962; 99283; 99284

== ENCOUNTER 2018-12-22 10:04 | Emergency (ER) | payer OTHER ==
[~2018-12-22] VITALS: Ht 170.2 cm; Wt 97.5 kg
[~2018-12-22 10:04] MED LIST changes: +LEVO100T5 PO; +LOSA-73 PO; +MELO15TA23 PO; +PIOG45TA40 PO
--- NOTE | 2018-12-22 10:30 | PHYS DOC ---
Past Medical History Past Medical History: Diabetes-Type II, High Cholesterol, Hypertension, Hypothyroid Additional Past Medical Histor: 'DAMAGE TO LEFT VENTRICLE' Past Surgical History: Hysterectomy, Tubal ligation Additional Past Surgical Histo: THYROID SURG 85 Alcohol Use: None Drug Use: None Adult General Chief Complaint Chief Complaint: LOWER EXTREMITY SWELLING [facility] HPI Patient is a 68 year old female that presents with bilateral lower extremity swelling. The patient denies having history of congestive heart failure, states she has been having congestion, and cough. Rates her pain a 7 out of 10 in severity. States this has been ongoing for 4 days. Review of Systems Review of Systems Constitutional: Denies fever or chills [] Eyes: Denies change in visual acuity, redness, or eye pain [] HENT: Reports nasal congestion Respiratory: Reports mild cough Cardiovascular: No additional information not addressed in HPI [] GI: Denies abdominal pain, nausea, vomiting, bloody stools or diarrhea [] : Denies dysuria or hematuria [] Musculoskeletal: Denies back pain or joint pain [] Integument: Reports bilateral lower extremity swelling. Neurologic: Denies headache, focal weakness or sensory changes [] Endocrine: Denies polyuria or polydipsia [] Complete systems were reviewed and found to be within normal limits, except as documented in this note. Allergies Allergies Allergies Coded Allergies Type Severity Reaction Last Updated Verified No Known Drug Allergies 08/28/15 No Physical Exam Physical Exam Constitutional: Well developed, well nourished, no acute distress, non-toxic appearance. [] HENT: Normocephalic, atraumatic, bilateral external ears normal, oropharynx moist, no oral exudates, nose normal. [] Eyes: PERRLA, EOMI, conjunctiva normal, no discharge. [] Neck: Normal range of motion, no tenderness, supple, no stridor. [] Cardiovascular:Heart rate regular rhythm, no murmur [] Lungs & Thorax: Bilateral breath sounds clear to auscultation with exception of rhonchi at R base. Abdomen: Bowel sounds normal, soft, no tenderness, no masses, no pulsatile masses. [] Skin: Warm, dry, no erythema, no rash. [] Back: No tenderness, no CVA tenderness. [] Extremities: No tenderness, pitting edema bilaterally lower leg and feet. Neurologic: Alert and oriented X 3, normal motor function, normal sensory function, no focal deficits noted. [] Psychologic: Affect normal, judgement normal, mood normal. [] Current Patient Data Vital Signs Vital Signs Date Time Temp Pulse Resp B/P (MAP) Pulse Ox O2 Delivery O2 Flow Rate FiO2 12/22/18 13:05 63 16 182/65 (104) 98 Room Air 12/22/18 10:25 98.0 98.0 Lab Values Laboratory Tests Test 12/22/18 11:40 White Blood Count 6.5 x10^3/uL (4.0-11.0) Red Blood Count 3.56 x10^6/uL (3.50-5.40) Hemoglobin 11.1 g/dL (12.0-15.5) L Hematocrit 32.7 % (36.0-47.0) L Mean Corpuscular Volume 92 fL (79-100) Mean Corpuscular Hemoglobin 31 pg (25-35) Mean Corpuscular Hemoglobin Concent 34 g/dL (31-37) Red Cell Distribution Width 14.8 % (11.5-14.5) H Platelet Count 224 x10^3/uL (140-400) Neutrophils (%) (Auto) 58 % (31-73) Lymphocytes (%) (Auto) 32 % (24-48) Monocytes (%) (Auto) 8 % (0-9) Eosinophils (%) (Auto) 1 % (0-3) Basophils (%) (Auto) 0 % (0-3) Neutrophils # (Auto) 3.8 x10^3/uL (1.8-7.7) Lymphocytes # (Auto) 2.1 x10^3/uL (1.0-4.8) Monocytes # (Auto) 0.5 x10^3/uL (0.0-1.1) Eosinophils # (Auto) 0.1 x10^3/uL (0.0-0.7) Basophils # (Auto) 0.0 x10^3/uL (0.0-0.2) Sodium Level 143 mmol/L (136-145) Potassium Level 4.1 mmol/L (3.5-5.1) Chloride Level 107 mmol/L (98-107) Carbon Dioxide Level 32 mmol/L (21-32) Anion Gap 4 (6-14) L Blood Urea Nitrogen 17 mg/dL (7-20) Creatinine 0.9 mg/dL (0.6-1.0) Estimated GFR (Cockcroft-Gault) 62.1 BUN/Creatinine Ratio 19 (6-20) Glucose Level 97 mg/dL (70-99) Calcium Level 9.0 mg/dL (8.5-10.1) Total Bilirubin 0.2 mg/dL (0.2-1.0) Aspartate Amino Transferase (AST) 17 U/L (15-37) Alanine Aminotransferase (ALT) 25 U/L (14-59) Alkaline Phosphatase 94 U/L (46-116) VY-Ket-L-Type Natriuretic Peptide 283 pg/mL (0-124) H Total Protein 6.9 g/dL (6.4-8.2) Albumin 3.0 g/dL (3.4-5.0) L Albumin/Globulin Ratio 0.8 (1.0-1.7) L Laboratory Tests 12/22/18 11:40 Laboratory Tests 12/22/18 11:40 EKG EKG [] Radiology/Procedures Radiology/Procedures [][facility] [address] [place] [address] IMAGING REPORT Signed PATIENT: ALICJA العراقي ACCOUNT: [id number] : 1950 LOCATION: ER AGE: 68 SEX: F EXAM STATUS: REG ER ORD. PHYSICIAN: CALIN BUSTILLO APRN REASON: cough, congestion x2 days PROCEDURE: CHEST PA & LATERAL PA and lateral chest radiographs 12/22/2018 CLINICAL HISTORY: Cough and congestion for 2 days. PA and lateral digital radiographs of the chest were obtained. Comparison study is dated 11/17/2018. The cardiac silhouette is mildly enlarged. Atherosclerotic calcification of the thoracic aorta is seen. The thoracic aorta is mildly tortuous. Prominence of the pulmonary vasculature and interstitial markings in both lungs is seen suggesting mild to moderate CHF. No pneumothorax or pleural effusion is seen. The osseous structures are unchanged. IMPRESSION: Findings suggesting mild to moderate CHF. Electronically signed by: Tiburcio Ordoñez MD (12/22/2018 11:12 AM) [facility] DICTATED and SIGNED BY: TIBURCIO ORDOÑEZ MD DATE: 12/22/18 1112 Course & Med Decision Making Course & Med Decision Making Pertinent Labs and Imaging studies reviewed. (See chart for details) Will get labs and x-ray. BNP is slightly elevated, x-ray suggests CHF. Will have follow up with PCP for further workup. Patient has an appointment on Monday with PCP. Will have patient discuss this with PCP and have PCP to place on Diuretic. Dragon Disclaimer Dragon Disclaimer This electronic medical record was generated, in whole or in part, using a voice recognition dictation system. Departure Departure Impression: Primary Impression: Lower extremity edema Disposition: HOME, SELF-CARE Condition: STABLE Referrals: ASHLEY GIRON MD (PCP) Patient Instructions: Heart Failure Additional Instructions: Thank you for visiting [facility]. We appreciate you trusting us with your care. If any additional problems come up don't hesitate to return to [facility]it us. Please follow up with your primary care provider so they can plan additional care if needed and know about the problem that you had. If symptoms worsen come back to the Emergency Department. Any concerning symptoms that start such as chest pain, shortness of air, weakness or numbness on one side of the body, running high fevers or any other concerning symptoms return to the ER. CALIN BUSTILLO APRN Dec 22, 2018 10:30
--- NOTE | 2018-12-22 11:15 | RAD ---
PA and lateral chest radiographs 12/22/2018 CLINICAL HISTORY: Cough and congestion for 2 days. PA and lateral digital radiographs of the chest were obtained. Comparison study is dated 11/17/2018. The cardiac silhouette is mildly enlarged. Atherosclerotic calcification of the thoracic aorta is seen. The thoracic aorta is mildly tortuous. Prominence of the pulmonary vasculature and interstitial markings in both lungs is seen suggesting mild to moderate CHF. No pneumothorax or pleural effusion is seen. The osseous structures are unchanged. IMPRESSION: Findings suggesting mild to moderate CHF. Electronically signed by: Tiburcio Ordoñez MD (12/22/2018 11:12 AM) [facility]
[2018-12-22 12:27] LABS: BASO % 0 % (0-3); EOS # 0.1 x10^3/uL (0.0-0.7); EOS % 1 % (0-3); HEMATOCRIT 32.7 % (36.0-47.0); HEMOGLOBIN 11.1 g/dL (12.0-15.5); LYMPH # 2.1 x10^3/uL (1.0-4.8); LYMPH % 32 % (24-48); MEAN CORPUSCULAR HEMOGLOBIN 31 pg (25-35); MEAN CORPUSCULAR HGB CONC 34 g/dL (31-37); MEAN CORPUSCULAR VOLUME 92 fL (79-100); MONO # 0.5 x10^3/uL (0.0-1.1); MONO % 8 % (0-9); NEUT # 3.8 x10^3/uL (1.8-7.7); NEUT % 58 % (31-73); PLATELET COUNT 224 x10^3/uL (140-400); RED BLOOD COUNT 3.56 x10^6/uL (3.50-5.40); RED CELL DISTRIBUTION WIDTH 14.8 % (11.5-14.5); WHITE BLOOD COUNT 6.5 x10^3/uL (4.0-11.0)
[2018-12-22 12:43] LABS: CREATININE 0.9 mg/dL (0.6-1.0); GFR 62.1; POTASSIUM 4.1 mmol/L (3.5-5.1)
[2018-12-22 12:49] LABS: ALBUMIN/GLOBULIN RATIO 0.8 (1.0-1.7); TOTAL BILIRUBIN 0.2 mg/dL (0.2-1.0); TOTAL PROTEIN 6.9 g/dL (6.4-8.2)
[2018-12-22 13:05] VITALS: BP 182/65
== END 2018-12-22 13:05 | disposition home or self-care (01) ==
LOC: ER 10:04
DX: R60.0 Localized edema (principal); R05 Cough; R09.81 Nasal congestion; E11.9 Type 2 diabetes mellitus without complications; E78.00 Pure hypercholesterolemia, unspecified; I10 Essential (primary) hypertension; E03.9 Hypothyroidism, unspecified; Z90.710 Acquired absence of both cervix and uterus; Z98.51 Tubal ligation status
CPT/HCPCS: 36415; 71046; 80053; 83880; 85025; 99285-25

== ENCOUNTER → 2019-01-14 | Outpatient (CLI) | payer OTHER ==
[2018-12-22 13:05] VITALS: BP 182/65
[~2019-01-14] MED LIST changes: +REGADENOSON 0.4 MG/5 ML DISP.SYRIN. IV ONE
--- NOTE | 2019-01-15 09:20 | RAD ---
MR#: [id number] Date of Study: 01/14/2019 Ordering Physician: RODRI HILL Referring Physician: LILLIANA CARY Tech: RT Amaury (Aly) (N) APPROVED REPORT Test Type: Pharmacological Stress Nurse/Tech: Taylor Phillip RN Test Indications: A-fib Cardiac History: Hypertension, Diabetes Medications: See Electronic Medical Record Medical History: See Electronic Medical Record Resting ECG: SR Resting Heart Rate: 60 bpm Resting Blood Pressure: 192/71mmHg Pretest Chest Pain: No chest pain Nurse/Tech Notes S1, S2 and lungs clear to auscultation. Consent: The procedure was explained to the patient in lay terms. Informed consent was witnessed. Edward eout was entered into [employer]. History and Stress Test performed by JONO Zepeda Pharm. Details Pharmacologic stress testing was performed using 0.4mg per 5ml of regadenoson given intravenously ove r 7-10 seconds. Stress Symptoms Dizziness,Dyspnea POST EXERCISE Reason for Termination: Infusion complete Target HR: No Max HR: 95 bpm Max Blood Pressure: 214/61mmHg Blood Pressure response to exercise: Normal blood pressure response during stress. Heart Rate response to exercise: WNL Chest Pain: No. Arrhythmia: No. ST Change: No. INTERPRETATION Stress EKG Conclusion: Baseline EKG showed sinus rhythm. No ischemic changes at peak stress. No arr hythmias. Imaging Protocol IMAGE PROTOCOL: Rest Tc-99m/stress Tc-99m 1 day Rest: Stress: Viability: Radiopharm.Tc99m [id number] Sestamibi Dose10.6mCi 32.1mCi Duration 13min. 13min. Img Date 01/14/2019 01/14/2019 Inj-Img [id number]. 60min. Rest Admin Site:IV - Right AntecubitalAdministrator:JONO Zepeda Stress Admin Site: IV - Right AntecubitalAdministrator: JONO Zepeda STRESS DATA End Diast. Vol.113.0mlAv. Heart Rate66.0bpm LVEDV index BSA55.0mlCardiac Output0.0L/min End Syst. Vol.30.0mlCO Index BSA0.0L/min LVESV index BSA15.0mlMyocardial Sred190.0g Eject. Katlwdir35.0% Stress Scores Regional WT0.00Summed WT2.00 Regional WM0.00Summed WM0.00 Study quality was good. Left Ventricular size was Normal at Rest and Stress. Lung uptake was . Left Ventricular ejection fraction is 73%. The rest and stress images show normal perfusion, normal contraction and thickening. LV Perf. Quant 17 Seg. SSS6.00 17 Seg. SRS3.00 17 Seg. SDS5.00 Stress Defect Extent (% LAD)0.00Rest Defect Extent (% LAD)0.00Rev. Defect Extent (% LAD)0.00 Stress Defect Extent (% LCX) 31.30Rest Defect Extent (% LCX)0.00Rev. Defect Extent (% LCX)11.30 Stress Defect Extent (% RCA)0.00Rest Defect Extent (% RCA)0.00Rev. Defect Extent (% RCA)0.00 Stress Defect Extent (% RIKI)7.20Rest Defect Extent (% RIKI)0.00Rev. Defect Extent (% RIKI)3.30 Conclusion 1. Regadenoson cardioisotope stress test did not show any evidence of ischemia or infarct. 2. Normal left ventricular systolic function with ejection fraction calculated at 73%. 3. Low risk for cardiac events. Signed by : Rodri Hill, Electronically Approved : 01/14/2019 12:20:56
== END | disposition home or self-care (01) ==
LOC: NM 08:34
PROVIDERS: ATTEND Internal Medicine Cardiovascular Disease
DX: I48.91 Unspecified atrial fibrillation (principal); I10 Essential (primary) hypertension; E11.9 Type 2 diabetes mellitus without complications
CPT/HCPCS: 78452; 93017; A9500; J2785

== ENCOUNTER 2019-12-21 09:53 | Emergency (ER) | payer MEDICARE, OTHER ==
[~2019-12-21] VITALS: Ht 170.2 cm; Wt 95.0 kg
[~2019-12-21 09:53] MED LIST changes: +MECL-75 PO; -MECL25TA3 PO; +PREG-9 PO; -PREG75CA PO; -REGADENOSON 0.4 MG/5 ML DISP.SYRIN. IV ONE
[2019-12-21 10:00] VITALS: BP 206/84
[2019-12-21] MEDS ORDERED: NEOMY/BACITR/POLYMYXIN OINT PACKET. TP ONE (10:30)
[2019-12-21] MEDS ORDERED: DIPH,PERTUSS(ACELL),TET VAC/PF 0.5 ML SYRINGE. VAX IM ONE (10:30)
--- NOTE | 2019-12-21 10:36 | PHYS DOC ---
Past Medical History Past Medical History: A-Fib, Diabetes-Type II, High Cholesterol, Hypertension, Hypothyroid Additional Past Medical Histor: 'DAMAGE TO LEFT VENTRICLE' Past Surgical History: Hysterectomy, Tubal ligation Additional Past Surgical Histo: THYROID SURG 85 Smoking Status: Never Smoker Alcohol Use: None Drug Use: None General Adult EDM: Chief Complaint: FOOT INJURY PAIN HPI: HPI: 69-year-old female presenting with a left foot injury. Patient was hanging a 20 pound mirror this morning when the mirror slid out of the frame and hit her in the foot. The mirror did not break. Patient said she was not some pain when she sustained the injury but is now reporting no pain. Patient has a history of poorly controlled diabetes and hypertension and states that she "cannot feel her feet as well". Patient is also on a blood thinner. Patient does not know if she had her tetanus vaccine in the last 5 years Review of Systems: Review of Systems: Constitutional: Denies fever or chills Eyes: Denies redness or eye pain HENT: Denies nasal congestion or sore throat Respiratory: Denies cough or shortness of breath Cardiovascular: Denies chest pain or palpitations GI: Denies abdominal pain, nausea, or vomiting : Denies dysuria or hematuria Musculoskeletal: Denies back pain or joint pain Integument: Denies rash or skin lesions Neurologic: Denies headache, focal weakness or sensory changes Complete systems were reviewed and found to be within normal limits, except as documented in this note. Current Medications: Current Medications Medications (Trade) Dose Ordered Sig/Sean Start Time Stop Time Status Last Admin Dose Admin Neomycin/ Polymyxin/ Bacitracin (Triple Antibiotic Ointment) 1 pkt 1X ONCE 12/21/19 10:30 12/21/19 10:31 Allergies: Allergies: Allergies Coded Allergies Type Severity Reaction Last Updated Verified No Known Drug Allergies 08/28/15 No Physical Exam: PE: Constitutional: Well developed, well nourished, no acute distress, non-toxic appearance HENT: Normocephalic, atraumatic Eyes: Conjunctiva normal, no discharge Neck: Normal range of motion, supple Lungs & Thorax: No respiratory distress, equal chest rise and fall Skin: Warm, dry, no erythema, no rash Extremities: Dorsal aspect of left foot has a 1 cm abrasion with dried blood, no bony tenderness noted, no erythema or signs of infection Neurologic: Alert and oriented X 3, no focal deficits noted Psychologic: Affect normal, judgment normal Current Patient Data: Vital Signs: Vital Signs Date Time Temp Pulse Resp B/P (MAP) Pulse Ox O2 Delivery O2 Flow Rate FiO2 12/21/19 10:00 98.8 75 16 206/84 (124) 96 Room Air 98.8 Radiology/Procedures: Radiology/Procedures: PROCEDURE: FOOT LEFT 3V FOOT LEFT 3V 12/21/2019 10:20 AM INDICATION: Dropped mirror on top of foot, bruising COMPARISON: None available. TECHNIQUE: 3 views of the left foot are provided. FINDINGS/ IMPRESSION: 1. There is mild joint space narrowing involving the first interphalangeal joint compatible with mild osteoarthrosis. Mild atelectasis involving the first MTP joint with marginal osteophytosis compatible with mild osteoarthrosis. No acute fracture or dislocation. Mild osteopenia. Dorsal soft tissue swelling is noted. No subcutaneous gas or radiopaque foreign density. Posterior and plantar calcaneal enthesophytes are present. Electronically signed by: Ghazala Roy MD (12/21/2019 10:58 AM) [facility] Course & Med Decision Making: Course & Med Decision Making Pertinent Labs and Imaging studies reviewed. (See chart for details) Patient is a 69-year-old female presenting with a foot injury. Patient dropped a 20 pound mirror on her foot that did not shatter. Physical exam only showed a small 1 cm abrasion and no redness to palpation. Due to patient's poorly controlled diabetes and possible diabetic neuropathy, foot x-ray imaging was obtained. Imaging showed no acute bony injury. Patient received a tetanus vaccine, foot abrasion was cleaned, antibiotic ointment was applied, and wound dressed. Patient stable for discharge with outpatient follow-up with PCP. Discussed findings and plan with patient, who acknowledges understanding and agreement. Dragon Disclaimer: Dragon Disclaimer: This electronic medical record was generated, in whole or in part, using a voice recognition dictation system. Departure Departure Impression: Primary Impression: Foot contusion Qualified Codes: S90.32XA - Contusion of left foot, initial encounter Additional Impression: Abrasion Disposition: 01 HOME, SELF-CARE Condition: STABLE Referrals: ASHLEY GIRON MD (PCP) Patient Instructions: Abrasion, [id number], Foot Contusion, [id number] Additional Instructions: Do not soak your wound. You may shower. Clean wound daily with soap and water. Change dressing daily. Use over the counter antibiotic ointment with each dressing change. Justicifation of Admission Dx: Justifications for Admission: Justification of Admission Dx: N/A CALIN GAXIOLA DO Dec 21, 2019 10:36
--- NOTE | 2019-12-21 11:01 | RAD ---
FOOT LEFT 3V 12/21/2019 10:20 AM INDICATION: Dropped mirror on top of foot, bruising COMPARISON: None available. TECHNIQUE: 3 views of the left foot are provided. FINDINGS/ IMPRESSION: 1. There is mild joint space narrowing involving the first interphalangeal joint compatible with mild osteoarthrosis. Mild atelectasis involving the first MTP joint with marginal osteophytosis compatible with mild osteoarthrosis. No acute fracture or dislocation. Mild osteopenia. Dorsal soft tissue swelling is noted. No subcutaneous gas or radiopaque foreign density. Posterior and plantar calcaneal enthesophytes are present. Electronically signed by: Ghazala Roy MD (12/21/2019 10:58 AM) [facility]
== END 2019-12-21 11:02 | disposition home or self-care (01) ==
LOC: ER 09:53
DX: S90.32XA Contusion of left foot, initial encounter (principal); I48.91 Unspecified atrial fibrillation; E11.9 Type 2 diabetes mellitus without complications; I10 Essential (primary) hypertension; E03.9 Hypothyroidism, unspecified; Z90.710 Acquired absence of both cervix and uterus; Z98.51 Tubal ligation status; Z98.890 Other specified postprocedural states; W22.8XXA Striking against or struck by other objects, initial encounter; Y93.89 Activity, other specified; Y92.89 Other specified places as the place of occurrence of the external cause; Y99.8 Other external cause status
CPT/HCPCS: 73630; 90471; 90715; 99283

== ENCOUNTER 2020-03-06 21:04 | Emergency (ER) | payer MEDICARE ==
[~2020-03-06] VITALS: Ht 170.2 cm; Wt 97.7 kg
--- NOTE | 2020-03-06 21:49 | PHYS DOC ---
Past Medical History Past Medical History: A-Fib, Diabetes-Type II, High Cholesterol, Hypertension, Hypothyroid Additional Past Medical Histor: 'DAMAGE TO LEFT VENTRICLE' Past Surgical History: Hysterectomy, Tubal ligation Additional Past Surgical Histo: THYROID SURG 85 Smoking Status: Never Smoker Alcohol Use: None Drug Use: None General Adult EDM: Chief Complaint: NAUSEA/VOMITING/DIARRHA HPI: HPI: Patient is a 69 year old female past medical history atrial fibrillation hypertension hyperlipidemia diabetes presents with a chief complaint of dizziness. Patient states dizziness started around 2100 hrs. Patient has associated nausea vomiting and some abdominal discomfort. Patient states dizziness is exacerbated with with any movement and alleviated by remaining stil l. Patient denies any headache visual changes or chest pain. Review of Systems: Review of Systems: Constitutional: Denies fever or chills. [] Eyes: Denies change in visual acuity. [] HENT: Denies nasal congestion or sore throat. [] Respiratory: Denies cough or shortness of breath. [] Cardiovascular: Denies chest pain or edema. [] GI: Denies abdominal pain, , bloody stools or diarrhea. [Positive nausea, vomiting] : Denies dysuria. [] Musculoskeletal: Denies back pain or joint pain. [] Integument: Denies rash. [] Neurologic: Denies headache, focal weakness or sensory changes. [Positive dizziness] Endocrine: Denies polyuria or polydipsia. [] Lymphatic: Denies swollen glands. [] Psychiatric: Denies depression or anxiety. [] Heart Score: Risk Factors: Risk Factors: DM, Current or recent (<one month) smoker, HTN, HLP, family history of CAD, obesity. Risk Scores: Score 0 - 3: 2.5% MACE over next 6 weeks - Discharge Home Score 4 - 6: 20.3% MACE over next 6 weeks - Admit for Clinical Observation Score 7 - 10: 72.7% MACE over next 6 weeks - Early Invasive Strategies Current Medications: Current Medications Medications (Trade) Dose Ordered Sig/Sean Start Time Stop Time Status Last Admin Dose Admin Meclizine HCl (Antivert) 25 mg 1X ONCE 03/06/20 21:45 03/06/20 21:46 UNV Ondansetron HCl (Zofran) 4 mg 1X ONCE 03/06/20 21:45 03/06/20 21:46 UNV Sodium Chloride 1,000 ml @ 1,000 mls/hr 1X ONCE 03/06/20 21:45 03/06/20 22:44 UNV Allergies: Allergies: Allergies Coded Allergies Type Severity Reaction Last Updated Verified No Known Drug Allergies 08/28/15 No Physical Exam: PE: Constitutional: Well developed, well nourished, no acute distress, non-toxic appearance. [] HENT: Normocephalic, atraumatic, bilateral external ears normal, oropharynx moist, no oral exudates, nose normal. [] Eyes: PERRLA, EOMI, conjunctiva normal, no discharge. [] Neck: Normal range of motion, no tenderness, supple, no stridor. [] Cardiovascular:Heart rate regular rhythm, no murmur [] Lungs & Thorax: Bilateral breath sounds clear to auscultation [] Abdomen: Bowel sounds normal, soft, no tenderness, no masses, no pulsatile masses. [] Skin: Warm, dry, no erythema, no rash. [] Back: No tenderness, no CVA tenderness. [] Extremities: No tenderness, no cyanosis, no clubbing, ROM intact, no edema. [] Neurologic: Alert and oriented X 3, normal motor function, normal sensory function, no focal deficits noted. [] Psychologic: Affect normal, judgement normal, mood normal. [] EKG: EKG: EKG taken at 2114 heart rate [address] elevation no ST depression no acute WI [] Radiology/Procedures: Radiology/Procedures: [] Course & Med Decision Making: Course & Med Decision Making Pertinent Labs and Imaging studies reviewed. (See chart for details) [] Patient was evaluated for chief complaint. Work-up consisted of EKG laboratory analysis and radiologic imaging. Results reviewed and discussed with family. Treatment included IV fluids Zofran and meclizine. Post treatment patient states symptoms completely resolved. Patient ambulated with a steady gait with no return of dizziness. Patient states she was comfortable going home. Patient was discharged home with prescription meclizine and Zofran. Dragon Disclaimer: Dragon Disclaimer: This electronic medical record was generated, in whole or in part, using a voice recognition dictation system. Departure Departure Impression: Primary Impression: Dizziness Disposition: 09 ADMITTED INPT THIS HOSP Condition: STABLE Referrals: ASHLEY GIRON MD (PCP) Patient Instructions: Dizziness Scripts Meclizine Hcl (MECLIZINE HCL) 25 Mg Tablet 1 TAB PO PRN TID, #30 TAB Prov: ERUM CUEVAS DO 03/06/20 ERUM CUEVAS DO Mar 06, 2020 21:49
[2020-03-06] MEDS ORDERED: MECLIZINE HCL 12.5 MG TABLET. PO ONE (22:00)
[2020-03-06] MEDS ORDERED: ONDANSETRON PF 4 MG/2 ML VIAL. IVP ONE (22:00)
[2020-03-06] MEDS ORDERED: IV NORMAL SALINE 1000ML BAG 1,000 ML IV ONE (22:00)
[2020-03-06 22:02] LABS: BASO % 0 % (0-3); EOS # 0.1 x10^3/uL (0.0-0.7); EOS % 1 % (0-3); HEMATOCRIT 36.3 % (36.0-47.0); HEMOGLOBIN 12.3 g/dL (12.0-15.5); LYMPH # 2.7 x10^3/uL (1.0-4.8); LYMPH % 30 % (24-48); MEAN CORPUSCULAR HEMOGLOBIN 30 pg (25-35); MEAN CORPUSCULAR HGB CONC 34 g/dL (31-37); MEAN CORPUSCULAR VOLUME 88 fL (79-100); MONO # 0.6 x10^3/uL (0.0-1.1); MONO % 7 % (0-9); NEUT # 5.6 x10^3/uL (1.8-7.7); NEUT % 61 % (31-73); PLATELET COUNT 268 x10^3/uL (140-400); RED BLOOD COUNT 4.11 x10^6/uL (3.50-5.40); RED CELL DISTRIBUTION WIDTH 15.2 % (11.5-14.5)
[2020-03-06 22:06] LABS: BILIRUBIN,URINE NEGATIVE (NEG); CLARITY,URINE CLEAR; COLOR,URINE YELLOW; NITRITE,URINE NEGATIVE (NEG); PROTEIN,URINE NEGATIVE (NEG-TRACE); UROBILINOGEN,URINE 0.2 mg/dL (0.2 mg/dL)
--- NOTE | 2020-03-06 22:20 | RAD ---
Exam: CT head INDICATION: Dizziness TECHNIQUE: Sequential axial images through the head were obtained without the administration of IV contrast. Comparisons: 06/18/2018 FINDINGS: No focal parenchymal lesion or hemorrhage is identified. There is no midline shift or sulcal effacement. Mild patchy hypodensity in the periventricular white matter, stable from prior. No acute vascular territory infarction is identified. Thompson-white distinction is preserved. The ventricular system is within normal limits without compression hydrocephalus. The basal cisterns are well maintained. The visualized portions of the paranasal sinuses and mastoid air cells are well-pneumatized. No acute fractures. IMPRESSION: No acute intracranial abnormality. Exposure: One or more of the following in the visualized dose reduction techniques were utilized for this examination: 1. Automated exposure control 2. Adjustment of the MA and/or KV according to patient size Use of iterative of reconstructive technique Electronically signed by: Farooq Glover MD (03/06/2020 10:17 PM) [facility]
[2020-03-06 22:23] LABS: BACTERIA,URINE FEW /HPF (0-FEW); CREATININE 0.7 mg/dL (0.6-1.0); GFR 82.7; POTASSIUM 3.4 mmol/L (3.5-5.1)
[2020-03-06 22:29] LABS: ALBUMIN 3.4 g/dL (3.4-5.0); ALBUMIN/GLOBULIN RATIO 0.7 (1.0-1.7); TOTAL BILIRUBIN 0.3 mg/dL (0.2-1.0)
[2020-03-06] MEDS ORDERED: MECL-75 PO (23:39)
[2020-03-07 00:05] VITALS: BP 197/78
== END 2020-03-07 00:07 | disposition admitted as inpatient to this hospital (09) ==
LOC: ER 21:04
DX: R42 Dizziness and giddiness (principal); R11.2 Nausea with vomiting, unspecified; I48.91 Unspecified atrial fibrillation; E11.9 Type 2 diabetes mellitus without complications; E78.00 Pure hypercholesterolemia, unspecified; I10 Essential (primary) hypertension; E03.9 Hypothyroidism, unspecified; Z90.710 Acquired absence of both cervix and uterus; Z98.51 Tubal ligation status
CPT/HCPCS: 36415; 70450; 80053; 81001; 84484; 85025; 96361; 96374; 99285; J2405; J7030; J8597

== ENCOUNTER 2020-04-09 12:57 | Emergency (ER) | payer MEDICARE, OTHER ==
[~2020-04-09] VITALS: Ht 170.2 cm; Wt 95.0 kg
[2020-04-09 13:52] LABS: BASO # 0.1 x10^3/uL (0.0-0.2); BASO % 1 % (0-3); EOS # 0.1 x10^3/uL (0.0-0.7); EOS % 1 % (0-3); HEMATOCRIT 39.3 % (36.0-47.0); HEMOGLOBIN 13.1 g/dL (12.0-15.5); LYMPH # 4.1 x10^3/uL (1.0-4.8); LYMPH % 37 % (24-48); MEAN CORPUSCULAR HEMOGLOBIN 30 pg (25-35); MEAN CORPUSCULAR HGB CONC 34 g/dL (31-37); MEAN CORPUSCULAR VOLUME 88 fL (79-100); MONO # 0.9 x10^3/uL (0.0-1.1); MONO % 8 % (0-9); NEUT # 5.7 x10^3/uL (1.8-7.7); NEUT % 52 % (31-73); PLATELET COUNT 323 x10^3/uL (140-400); RED BLOOD COUNT 4.46 x10^6/uL (3.50-5.40); RED CELL DISTRIBUTION WIDTH 15.1 % (11.5-14.5); WHITE BLOOD COUNT 10.9 x10^3/uL (4.0-11.0)
[2020-04-09 13:52] LABS: BILIRUBIN,URINE NEGATIVE (NEG); CLARITY,URINE CLEAR; COLOR,URINE YELLOW; NITRITE,URINE NEGATIVE (NEG); PROTEIN,URINE 100 mg/dL (NEG-TRACE); UROBILINOGEN,URINE 0.2 mg/dL (0.2 mg/dL)
[2020-04-09 14:00] VITALS: BP 168/64
[2020-04-09 14:00] LABS: CALCIUM 9.9 mg/dL (8.5-10.1); CREATININE 0.8 mg/dL (0.6-1.0); GFR 70.9; POTASSIUM 3.4 mmol/L (3.5-5.1)
[2020-04-09 14:05] LABS: BACTERIA,URINE 0 /HPF (0-FEW); WBC,URINE OCC /HPF (0-4)
[2020-04-09 14:06] LABS: ALBUMIN 3.7 g/dL (3.4-5.0); ALBUMIN/GLOBULIN RATIO 0.8 (1.0-1.7); TOTAL BILIRUBIN 0.3 mg/dL (0.2-1.0); TOTAL PROTEIN 8.6 g/dL (6.4-8.2)
--- NOTE | 2020-04-09 14:14 | ED.ADGEN ---
Past Medical History Past Medical History: A-Fib, Diabetes-Type II, High Cholesterol, Hypertension, Hypothyroid Additional Past Medical Histor: 'DAMAGE TO LEFT VENTRICLE' Past Surgical History: Hysterectomy, Tubal ligation Additional Past Surgical Histo: THYROID SURG 85 Smoking Status: Never Smoker Alcohol Use: None Drug Use: None General Adult EDM: Chief Complaint: HYPERGLYCEMIA HPI: HPI: Patient is a 69 year old female coming in for evaluation of high blood sugar readings at home. Patient states this morning prior to taking her Metformin her blood sugar was in the 300s, she had just drinking Ensure. Patient took her Metformin but continued took her blood sugar hourly which went to 400 then up to 500. Patient states she had been little bit stressed out this morning. Patient states she also has a history of atrial fibrillation and is anticoagulated on Eliquis. She states she has been compliant on her medications and does not skip doses. Patient states otherwise been well and denies any recent fevers, cough, vomiting or diarrhea. Review of Systems: Review of Systems: Negative other than HPI Allergies: Allergies: Allergies Coded Allergies Type Severity Reaction Last Updated Verified No Known Drug Allergies 08/28/15 No Physical Exam: PE: Constitutional: Well developed, well nourished, no acute distress, non-toxic appearance. [] HENT: Normocephalic, atraumatic, bilateral external ears normal, oropharynx moist, no oral exudates, nose normal. [] Eyes: PERRLA, EOMI, conjunctiva normal, no discharge. [] Neck: Normal range of motion, no tenderness, supple, no stridor. [] Cardiovascular:Heart rate regular rhythm, no murmur [] Lungs & Thorax: Bilateral breath sounds clear to auscultation [] Abdomen: Bowel sounds normal, soft, no tenderness, no masses, no pulsatile masses. [] Skin: Warm, dry, no erythema, no rash. [] Back: No tenderness, no CVA tenderness. [] Extremities: No tenderness, no cyanosis, no clubbing, ROM intact, no edema. [] Neurologic: Alert and oriented X 3, normal motor function, normal sensory function, no focal deficits noted. [] Psychologic: Affect normal, judgement normal, mood normal. [] Current Patient Data: Labs: Laboratory Tests Test 04/09/20 13:09 04/09/20 13:10 04/09/20 13:45 Glucose (Fingerstick) 184 mg/dL (70-99) H White Blood Count 10.9 x10^3/uL (4.0-11.0) Red Blood Count 4.46 x10^6/uL (3.50-5.40) Hemoglobin 13.1 g/dL (12.0-15.5) Hematocrit 39.3 % (36.0-47.0) Mean Corpuscular Volume 88 fL (79-100) Mean Corpuscular Hemoglobin 30 pg (25-35) Mean Corpuscular Hemoglobin Concent 34 g/dL (31-37) Red Cell Distribution Width 15.1 % (11.5-14.5) H Platelet Count 323 x10^3/uL (140-400) Neutrophils (%) (Auto) 52 % (31-73) Lymphocytes (%) (Auto) 37 % (24-48) Monocytes (%) (Auto) 8 % (0-9) Eosinophils (%) (Auto) 1 % (0-3) Basophils (%) (Auto) 1 % (0-3) Neutrophils # (Auto) 5.7 x10^3/uL (1.8-7.7) Lymphocytes # (Auto) 4.1 x10^3/uL (1.0-4.8) Monocytes # (Auto) 0.9 x10^3/uL (0.0-1.1) Eosinophils # (Auto) 0.1 x10^3/uL (0.0-0.7) Basophils # (Auto) 0.1 x10^3/uL (0.0-0.2) Sodium Level 140 mmol/L (136-145) Potassium Level 3.4 mmol/L (3.5-5.1) L Chloride Level 101 mmol/L (98-107) Carbon Dioxide Level 28 mmol/L (21-32) Anion Gap 11 (6-14) Blood Urea Nitrogen 20 mg/dL (7-20) Creatinine 0.8 mg/dL (0.6-1.0) Estimated GFR (Cockcroft-Gault) 70.9 BUN/Creatinine Ratio 25 (6-20) H Glucose Level 181 mg/dL (70-99) H Calcium Level 9.9 mg/dL (8.5-10.1) Total Bilirubin 0.3 mg/dL (0.2-1.0) Aspartate Amino Transferase (AST) 16 U/L (15-37) Alanine Aminotransferase (ALT) 22 U/L (14-59) Alkaline Phosphatase 116 U/L (46-116) Troponin I Quantitative < 0.017 ng/mL (0.000-0.055) MU-Hck-F-Type Natriuretic Peptide 137 pg/mL (0-124) H Total Protein 8.6 g/dL (6.4-8.2) H Albumin 3.7 g/dL (3.4-5.0) Albumin/Globulin Ratio 0.8 (1.0-1.7) L Urine Collection Type Unknown Urine Color Yellow Urine Clarity Clear Urine pH 7.0 (<5.0-8.0) Urine Specific [place] 1.010 (1.000-1.030) Urine Protein 100 mg/dL (NEG-TRACE) Urine Glucose (UA) 100 mg/dL (NEG) Urine Ketones (Stick) Negative mg/dL (NEG) Urine Blood Trace (NEG) Urine Nitrite Negative (NEG) Urine Bilirubin Negative (NEG) Urine Urobilinogen Dipstick 0.2 mg/dL (0.2 mg/dL) Urine Leukocyte Esterase Negative (NEG) Urine RBC 1-2 /HPF (0-2) Urine WBC Occ /HPF (0-4) Urine Squamous Epithelial Cells Few /LPF Urine Bacteria 0 /HPF (0-FEW) Laboratory Tests 04/09/20 13:10 Laboratory Tests 04/09/20 13:10 Vital Signs: Vital Signs Date Time Temp Pulse Resp B/P (MAP) Pulse Ox O2 Delivery O2 Flow Rate FiO2 04/09/20 13:14 98.0 118 18 202/106 (138) 98 Room Air 98.0 EKG: EKG: Atrial fibrillation, heart rate 128, normal axis, no ST elevation or depression [] Heart Score: Risk Factors: Risk Factors: DM, Current or recent (<one month) smoker, HTN, HLP, family history of CAD, obesity. Risk Scores: Score 0 - 3: 2.5% MACE over next 6 weeks - Discharge Home Score 4 - 6: 20.3% MACE over next 6 weeks - Admit for Clinical Observation Score 7 - 10: 72.7% MACE over next 6 weeks - Early Invasive Strategies Radiology/Procedures: Radiology/Procedures: [] Course & Med Decision Making: Course & Med Decision Making Pertinent Labs and Imaging studies reviewed. (See chart for details) [] Dragon Disclaimer: Dragon Disclaimer: This electronic medical record was generated, in whole or in part, using a voice recognition dictation system. Departure Departure Impression: Primary Impression: High blood sugar Disposition: 01 DC HOME SELF CARE/HOMELESS Condition: STABLE Referrals: ASHLEY GIRON MD (PCP) Patient Instructions: Blood Sugar Monitoring, Adult ANT FERGUSON MD Apr 09, 2020 14:14
== END 2020-04-09 14:25 | disposition home or self-care (01) ==
LOC: ER 12:57
DX: E11.65 Type 2 diabetes mellitus with hyperglycemia (principal); I48.20 Chronic atrial fibrillation, unspecified; E78.00 Pure hypercholesterolemia, unspecified; I10 Essential (primary) hypertension; E03.9 Hypothyroidism, unspecified; Z90.710 Acquired absence of both cervix and uterus; Z98.51 Tubal ligation status; Z98.890 Other specified postprocedural states
CPT/HCPCS: 36415; 80053; 81001; 82962; 83880; 84484; 85025; 93005; 99284

== ENCOUNTER 2020-11-22 09:48 | Emergency (ER) | payer MEDICARE, OTHER ==
[~2020-11-22] VITALS: Ht 170.2 cm; Wt 95.5 kg
[2020-11-22 10:15] VITALS: BP 161/100
[2020-11-22] MEDS ORDERED: CETIRIZINE HCL 10 MG TABLET. PO STA (10:43)
[2020-11-22] MEDS ORDERED: FAMOTIDINE 20 MG TABLET. PO ONE (10:45)
[2020-11-22] MEDS ORDERED: predniSONE 10 MG TABLET PO ONE (10:45)
[2020-11-22] MEDS ORDERED: FAMO-63 PO (11:19)
[2020-11-22] MEDS ORDERED: CETI10TA74 PO (11:19)
[2020-11-22] MEDS ORDERED: PRED50TA PO (11:19)
--- NOTE | 2020-11-22 11:20 | PHYS DOC ---
Past Medical History Past Medical History: A-Fib, Diabetes-Type II, High Cholesterol, Hypertension, Hypothyroid Additional Past Medical Histor: 'DAMAGE TO LEFT VENTRICLE' Past Surgical History: Hysterectomy, Tubal ligation Additional Past Surgical Histo: THYROID SURG 85 Smoking Status: Never Smoker Alcohol Use: None Drug Use: None General Adult EDM: Chief Complaint: EYE PROBLEMS HPI: HPI: Patient is a 70 year old female with history of diabetes type 2, hypertension, high cholesterol, A. fib, among other illnesses who presents today complaining of facial swelling and itching that began yesterday, patient reports being outside doing yard work due to area. Denies any throat or tongue itching or swelling. Denies being on any GIAN inhibitors, denies any difficulty breathing Review of Systems: Review of Systems: Constitutional: Denies fever or chills. [] Eyes: Denies change in visual acuity. [] HENT: Denies nasal congestion or sore throat. [] Respiratory: Denies cough or shortness of breath. [] Cardiovascular: Denies chest pain or edema. [] GI: Denies abdominal pain, nausea, vomiting, bloody stools or diarrhea. [] : Denies dysuria. [] Musculoskeletal: Denies back pain or joint pain. [] Integument: Reports facial swelling, facial itching Neurologic: Denies headache, focal weakness or sensory changes. [] ] Psychiatric: Denies depression or anxiety. [] Heart Score: C/O Chest Pain: N/A Risk Factors: Risk Factors: DM, Current or recent (<one month) smoker, HTN, HLP, family history of CAD, obesity. Risk Scores: Score 0 - 3: 2.5% MACE over next 6 weeks - Discharge Home Score 4 - 6: 20.3% MACE over next 6 weeks - Admit for Clinical Observation Score 7 - 10: 72.7% MACE over next 6 weeks - Early Invasive Strategies Current Medications: Current Medications Medications (Trade) Dose Ordered Sig/Sean Start Time Stop Time Status Last Admin Dose Admin Cetirizine HCl (ZyrTEC) 10 mg 1X STAT 11/22/20 10:43 11/22/20 10:46 DC Famotidine (Pepcid) 20 mg 1X ONCE 11/22/20 10:45 11/22/20 10:46 DC Prednisone (Prednisone) 50 mg 1X ONCE 11/22/20 10:45 11/22/20 10:46 DC Allergies: Allergies: Allergies Coded Allergies Type Severity Reaction Last Updated Verified No Known Drug Allergies 08/28/15 No Physical Exam: PE: Constitutional: Well developed, well nourished, no acute distress, non-toxic appearance. [] HENT: Normocephalic, atraumatic, bilateral external ears normal, oropharynx moist, no oral exudates, nose normal. Airway is open Eyes: PERRLA, EOMI, conjunctiva normal, no discharge. [] Neck: Normal range of motion, no tenderness, supple, no stridor. [] Cardiovascular:Heart rate regular rhythm, no murmur [] Lungs & Thorax: Bilateral breath sounds clear to auscultation [] Abdomen: Bowel sounds normal, soft, no tenderness, no masses, no pulsatile darío s. [] Skin: Slight soft tissue swelling noted on bilateral upper eyelids and cheeks Back: No tenderness, no CVA tenderness. [] Extremities: No tenderness, no cyanosis, no clubbing, ROM intact, no edema. [] Neurologic: Alert and oriented X 3, normal motor function, normal sensory function, no focal deficits noted. [] Psychologic: Affect normal, judgement normal, mood normal. [] Current Patient Data: Vital Signs: Vital Signs Date Time Temp Pulse Resp B/P (MAP) Pulse Ox O2 Delivery O2 Flow Rate FiO2 11/22/20 10:15 98.9 59 18 161/100 (98) 100 Room Air 98.9 EKG: EKG: [] Radiology/Procedures: Radiology/Procedures: [] Course & Med Decision Making: Course & Med Decision Making Pertinent Labs and Imaging studies reviewed. (See chart for details) This is a 70-year-old female patient presenting to the ED today with facial swelling and itching that began yesterday after being outside helping with yard work a couple days unknown. Patient is discharged with prednisone Pepcid and zyrtec. Follow-up with primary care doctor in 1 week, provided return precautions. Sylwiaon Disclaimer: Denzel Disclaimer: This electronic medical record was generated, in whole or in part, using a voice recognition dictation system. Departure Departure Impression: Primary Impression: Contact dermatitis Qualified Codes: L25.9 - Unspecified contact dermatitis, unspecified cause Disposition: HOME / SELF CARE / HOMELESS Condition: STABLE Referrals: ASHLEY GIRON MD (PCP) follow up in 1-2 weeks Patient Instructions: Contact Dermatitis Additional Instructions: You were evaluated in the emergency room for facial swelling and itching. Take the prescribed medications as follow-up with your doctor in 1 week Scripts Famotidine (PEPCID) 20 Mg Tablet 20 MG PO DAILY, #5 TAB Prov: RIGOBERTO HERNANDEZ APRN 11/22/20 Prednisone (PREDNISONE) 50 Mg Tablet 1 TAB PO DAILY, #5 TAB Prov: RIGOBERTO HERNANDEZ APRN 11/22/20 Cetirizine Hcl (ZYRTEC) 10 Mg Tablet 1 TAB PO DAILY, #30 TAB 2 Refills Prov: RIGOBERTO HERNANDEZ APRN 11/22/20 RIGOBERTO HERNANDEZ APRN Nov 22, 2020 11:19
== END 2020-11-22 11:25 | disposition home or self-care (01) ==
LOC: ER 09:48
DX: L25.9 Unspecified contact dermatitis, unspecified cause (principal); I48.91 Unspecified atrial fibrillation; E11.9 Type 2 diabetes mellitus without complications; E78.00 Pure hypercholesterolemia, unspecified; I10 Essential (primary) hypertension; E03.9 Hypothyroidism, unspecified
CPT/HCPCS: 99284; J7512